=== PATIENT | male | born 1960 | race Caucasian/White ===

== ENCOUNTER 2021-02-23 09:45 | Outpatient (CLI) | payer BC, SELFPAY ==
--- NOTE | ~2021-02-23 | XR_ITS ---
EXAMINATION: XR chest 2V EXAM DATE: 02/23/2021 11:04 INDICATION: Malignant neoplasm of prostate, preoperative. TECHNIQUE: Frontal and lateral projections of the chest obtained and reviewed. There is no prior karen dy for comparison. FINDINGS: The lungs are clear. There are no pleural effusions. The cardiomediastinal silhouette is within normal limits. There is no pneumothorax suspected. There are no osteoblastic or osteolytic l esions identified. IMPRESSION: Unremarkable chest x-ray exam. Reviewed, dictated and finalized at location B.
--- NOTE | 2021-02-23 10:39 | ECG_ITS ---
Measurements Intervals [place] Rate: 60 P: -6 [place]: 183 QRS: -14 QRSD: 102 T: -1 QT: 390 QTc: 391 Interpretive Statements SINUS RHYTHM INFERIOR INFARCT, AGE INDETERMINATE BASELINE ARTIFACT- I, II, AVR ABNORMAL ECG Electronically Signed On 02-23-2021 12:36:25 CDT by Kareem Guzman D.O.
[2021-02-23 11:09] LABS: Basophils Percent Auto 0.3 % (0.2-1.2); Eosinophils Absolute Auto 0.2 K/mm3 (0-0.3); Eosinophils Percent Auto 3.5 % (0-4.4); Hematocrit 46.7 % (42.0-52.0); Hemoglobin 16.2 g/dL (14.0-18.0); Immature Granulocyte Absolute 0.02 K/mm3 (0.00-0.031); Immature Granulocyte Percent A 0.3 % (0-0.5); Lymphocytes Absolute Auto 1.91 K/mm3 (0.9-3.2); Lymphocytes Percent Auto 30.3 % (18.3-44.2); Mean Corpuscular HGB Conc 34.7 g/dl (32-36); Mean Corpuscular Hemoglobin 30.5 pg (26-34); Mean Corpuscular Volume 87.8 fl (80-100); Mean Platelet Volume 9.6 fl (7.4-10.4); Monocytes Absolute Auto 0.6 K/mm3 (0.1-0.6); Monocytes Percent Auto 9.7 % (2.6-8.5); Neutrophils Absolute Auto 3.5 K/mm3 (1.3-6.7); Neutrophils Percent Auto 55.9 % (45.5-73.1); Platelet Count Result 225 k/mm3 (150-375); Red Blood Count 5.32 M/mm3 (4.6-6.20); Red Cell Distribution Width 12.6 % (11.5-14.5); White Blood Count 6.3 K/mm3 (4.5-10.0)
[2021-02-23 11:21] LABS: Alanine Aminotransferase 24 U/L (4-50); Albumin Level 4.8 g/dL (3.5-5.1); Alkaline Phosphatase 61 U/L (38-126); Anion Gap 9 mmol/L (8-16); Aspartate Amino Transferase 23 U/L (17-59); Bilirubin,Total 0.7 mg/dL (0.2-1.3); Blood Urea Nitrogen 17 mg/dL (9-20); Calcium 9.2 mg/dL (8.4-10.2); Carbon Dioxide 27 mmol/L (22-30); Chloride 104 mmol/L (98-107); Estimated Glomerular Filt Rate > 60; Glucose 102 mg/dL (65-110); Potassium 4.3 mmol/L (3.4-5.0); Sodium 140 mmol/L (137-145)
[2021-02-23 11:34] LABS: Add Urine Microscopic? YES; Appearance Urine Clear (Clear); Bilirubin Urine Negative (Negative); Blood Urine Negative (Negative); Color Urine Yellow (Yellow); Glucose Urine UA Negative (Negative); Ketones Urine Negative (Negative); Leukocyte Esterase Ur Negative LEU/UL (Negative); Mucus Urine Rare /lpf; Nitrate Urine Negative (Negative); Protein Urine Negative (Negative); RBC Urine 0-2 /hpf (0-2); Specific Grav Ur 1.019 (1.001-1.035); Squamous Epithelial Cell Urine Rare /hpf (Few); Urobilinogen Urine Negative mg/dL (<2.0); WBC Urine 0-3 /hpf
[2021-02-23 12:44] LABS: INR 0.9; Prothrombin Time 11.7 Seconds (11.1-14.7)
[2021-02-23 12:45] LABS: Partial Thromboplastin Time 28.7 SECONDS (22.3-36.8)
== END 2021-02-23 09:46 | disposition home or self-care (01) ==
LOC: ANHSURGERY 09:53
PROVIDERS: PCP Family Medicine; Visit Provider Urology
DX: C61 Malignant neoplasm of prostate (principal); Z01.818 Encounter for other preprocedural examination; R94.31 Abnormal electrocardiogram [ECG] [EKG]
CPT/HCPCS: 36415; 71046; 80053; 81001; 85025; 85610; 85730; 86850; 86900; 86901; 93005

== ENCOUNTER 2021-03-03 01:45 | Day surgery (SDC) | payer BC, SELFPAY ==
--- NOTE | 2021-02-18 07:41 | P.HP_ITS ---
H&P: HPI History of Present Illness Date/Time: 02/18/21 07:41 Patient is a pleasant 60-year-old who was was deferred in the fall of 2019 with a PSA of 6.17. Prostate MRI revealed 1 suspicious lesion the left anterior transition zone measuring just 1.3 cm. Subsequent MRI fusion biopsy revealed 5 of 13 cores with [place] 6 and 3+4=7. Patient is status [facility] and has completed a course of adjuvant chemotherapy. After discussion of therapeutic options with myself in his medical oncologists he has elected for a robotic prostatectomy with bilateral pelvic lymphadenectomy. He is aware the risk of this procedure including, but not limited to, inability to complete because of his prior pelvic surgery, persistent cancer, rectal injury, postoperative urinary incontinence and erectile dysfunction. Chief Complaint: Prostate cancer Review of Systems Cardiovascular: Cardiovascular: Denies chest pain, Denies lightheadedness, Denies palpitations and Denies dyspnea Respiratory: Respiratory: Denies dyspnea Gastrointestinal: Gastrointestinal: Denies diarrhea, Denies nausea and Denies vomiting Genitourinary: Genitourinary: Denies hematuria and Denies dysuria Endocrine: Endocrine: Denies palpitations Exam Const: General: no acute distress Resp: Effort & Inspection: normal respiratory effort GI: Inspection: non-distended GI Palp: No abdominal tenderness and No Guarding due to palpation present (GI) Auscultation: normal bowel sounds Assessment and Plan Assessment and plan (1) Prostate cancer: Code(s): C61 - Malignant neoplasm of prostate Status: Acute Assessment and Plan: Robotic-assisted radical prostatectomy with bilateral pelvic lymphadenectomy
[2021-02-23 10:00] VITALS: BMI 29.8
[2021-03-03] VITALS (18 sets, daily range): BP systolic 93–138; BP diastolic 58–86; PULSE 66–102; RESP 15–18; TEMP 36.2–36.9; O2SAT 95–100
[2021-03-03] MEDS: LACTATED RINGERS 1,000 ML 30 ML IV CONT ×2 (06:49→11:18)
--- NOTE | 2021-03-03 06:49 | P.PNAN_ITS ---
Anes - Initial Pre Proc Eval Procedure: Operation Date: 03/03/21 07:30 Proposed Procedures p Robotic Assisted Laparoscopic Prostatectomy with Bilateral Pelvic Lymph Node Dissection - Mohsen Lozoya MD Date/Time: 03/03/21 06:49 Surgeon: Mohsen Lozoya MD Pre Op Diagnosis: prostate CA Patient Data Age: 60 Gender: M Height: 1.87 m Weight: 99.15 kg Last Vital Signs Temp 36.6 C 03/03/21 06:25 Pulse 66 03/03/21 06:25 Resp 16 03/03/21 06:25 BP 129/79 03/03/21 06:25 Pulse Ox 97 03/03/21 06:25 Allergies Allergy/AdvReac Type Severity Reaction Status Date / Time No Known Allergies Allergy Verified 03/03/21 06:31 Home Medications Medication Instructions Recorded Confirmed Type fnmghhf-cvcihlluyftho-yixruosi 2 tablet PO Q4-6H PRN 02/23/21 03/03/21 History [Excedrin Extra Strength] esomeprazole magnesium [Nexium] 20 mg PO PRN PRN 02/23/21 03/03/21 History Patient hx anesthesia problems: none Family hx anesthesia problems: none Results Review: All pre-operative results and documents have been reviewed as part of the pre-operative evaluation. [facility] Past Medical History Medical History (Updated 03/03/21 @ 06:52 by Lio Jiménez MD) Colon cancer Surgical History Surgical History (Updated 03/03/21 @ 06:52 by Lio Jiménez MD) History of partial colectomy Social History Social History Smoking status: Never smoker Living arrangements: with family Spiritual care concerns: No Anes - Eval Final PreProcedure Day of Procedure 03/03/21 06:49 Patient weight: overweight Heart: regular rate and rhythm Lungs: clear to auscultation Airway: Mallampati scale class II Neurological: alert and oriented Last oral intake: >/= 8 hours ASA classification: III Emergent: no Anesthetic plan: proceed Anesthesia type and monitoring: general and standard monitoring Results Review: All pre-operative results and documents have been reviewed as part of the pre-operative evaluation. Informed Consent: The patient's anesthetic plan and its attendant risks and benefits were discussed with the patient/family/POA. Questions were solicited and answers provided to the satisfaction of the patient/family/POA.
--- NOTE | 2021-03-03 06:56 | WPDHPUPDATE1 ---
History and Physical Update Update Date/Time: 03/03/21 06:56 History and Physical has been reviewed, including an updated exam of the patient. There are NO changes in the patient's condition. Risks, benefits, and alternatives have been discussed and questions answered. Patient agrees to proceed with procedure. Prostate volume: 56.7gm.
--- NOTE | 2021-03-03 11:13 | W.PM.PROC2 ---
Procedure Note - Detailed Date of Procedure 03/03/21 Pre-op Diagnosis Prostate CA Post-op Diagnosis same Procedure Performed Robotic assisted laparoscopic prostatectomy bilateral pelvic lymphadenectomy Surgeon Mohsen Lozoya MD [employer] RENETTA Troncoso Anesthesia general Description of Procedure The patient was brought to the operative suite, where he was prepped and draped in routine sterile fashion while in a dorsal lithotomy, deep Trendelenburg position. A supraumbilical 10 mm trocar was placed after insufflation of the abdomen with a Veress needle. Three robotic ports were then placed under direct vision. Two of these were placed in the right lower quadrant - 10 cm and 20 cm lateral to, and in line with, the umbilicus. A third robotic trocar was placed 10 cm to the left of the umbilicus, and 20 cm to the left of the umbilicus, a 12 mm standard laparoscopic trocar was placed to be used as an ice cream freezer assistant port. Lastly, a 5 mm trocar was placed in the left upper quadrant midway between the umbilicus and the left robotic trocar. Attention was then turned to the prostatectomy. I opted for a posterior approach in this patient. An incision was made in the parietal peritoneum along the posterior bladder/posterior prostate about 2 cm above the reflection of the peritoneum over the anterior rectum. The seminal vesicles and vas deferens were immediately identified. Dissection is undertaken in a fashion so as to avoid electrocautery as much as possible, particularly near the tips of the seminal vesicles. Dissection was also carried out in the midline so as to avoid any encounters with the ureters. The vas deferens and the seminal vesicles were dissected in their entirety to the base of the prostate. The plane anterior to Denoviller's fascia, anterior to the rectum and posterior to the prostate was then developed. I then dropped the bladder by incising the anterior parietal peritoneum just lateral to the median umbilical ligaments bilaterally. The bladder was dropped from the anterior abdominal and pelvic wall. The endopelvic fascia was identified and incised bilaterally, allowing for dissection of the posterior-lateral aspect of the prostate. The puboprostatic ligaments were transected near their origin from the posterior pubic ramus. This posterior lateral dissection of the prostate is also undertaken in a fashion so as to avoid electrocautery as much as possible. The dorsal vein of the penis is then secured with an 0 -Vicryl ligature. Attention is then turned to the bladder neck. The anterior bladder neck is incised at the vesico-prostatic junction. The previously placed urethral catheter was drawn through the urethrotomy. A very small bladder neck was maintained throughout the remainder of this dissection. The posterior bladder neck was incised in a fashion so as to avoid any injury to the ureteral orifices. Again, the small aperture of the bladder neck was maintained. The previously dissected vas deferens and the seminal vesicles were brought through the posterior bladder neck incision. The lateral prostatic pedicles were then carefully dissected from the lateral aspect of the prostate bilaterally. The prostatic pedicles were secured with Weck clips and transected. The neurovascular bundles were carefully dissected from the posterior-lateral aspect of the prostate. The dorsal vein of the penis was incised with electrocautery. Using cold scissors, the urethra was incised. After withdrawing the previously placed urethral catheter, the posterior urethra was sharply incised, as was the rectalurethralis muscle. Attention was then turned to an extended bilateral pelvic lymphadenectomy. The limits of this dissection were similar bilaterally. Specifically, the limits were the bifurcation of the common iliac vein proximally, the inguinal ligament distally, the obturator nerve posteriorly and the anterior aspect to the external iliac artery laterally.
[2021-03-03] MEDS: fentaNYL CITRATE INJ (*CRX) 100 MCG/2 ML VIAL 25 MCG IV PUSH ×4 (12:54→13:40)
[2021-03-03] MEDS: LACTATED RINGERS 1,000 ML 125 ML IV CONT ×2 (14:14→22:39)
[2021-03-04 06:16] LABS: Hematocrit 34.8 % (42.0-52.0); Hemoglobin 11.6 g/dL (14.0-18.0)
[2021-03-04 06:25] LABS: Anion Gap 7 mmol/L (8-16); Blood Urea Nitrogen 20 mg/dL (9-20); Calcium 8.3 mg/dL (8.4-10.2); Carbon Dioxide 24 mmol/L (22-30); Chloride 103 mmol/L (98-107); Estimated CRCL calculation 100 ml/min; Estimated Glomerular Filt Rate > 60; Glucose 149 mg/dL (65-110); Sodium 134 mmol/L (137-145)
[2021-03-04 06:45] VITALS: BP 130/74; PULSE 91; RESP 18; TEMP 36.9; O2SAT 96
[2021-03-04] MEDS: LACTATED RINGERS 1,000 ML 125 ML IV CONT (06:54)
[2021-03-04] MEDS: levoFLOXacin 500 MG TABLET PO (08:29)
--- NOTE | 2021-03-04 08:32 | WPDUROPN2 ---
Progress Note: A&P Assessment and Plan (1) Prostate cancer: Code(s): C61 - Malignant neoplasm of prostate Status: Acute Assessment and Plan: Doing well POD #1 RALP Incraeas diet/ambulation this morning. Likely home this afternoon. Subjective Subjective Date/Time Seen: 03/04/21 08:32 Comfortable, tolerating diet Review of Systems Cardiovascular: Cardiovascular: Denies chest pain, Denies lightheadedness, Denies palpitations and Denies dyspnea Respiratory: Respiratory: Denies dyspnea Gastrointestinal: Gastrointestinal: Denies diarrhea, Denies nausea and Denies vomiting Genitourinary: Genitourinary: Denies hematuria and Denies dysuria Endocrine: Endocrine: Denies palpitations Exam Const: General: no acute distress Resp: Effort & Inspection: normal respiratory effort GI: Inspection: non-distended GI Palp: No abdominal tenderness and No Guarding due to palpation present (GI) Auscultation: normal bowel sounds Objective Data Vital Signs Vital Signs: Vital Signs - 24 hr 03/03/21 11:18 03/03/21 11:30 03/03/21 11:45 Temperature 97.2 F L Pulse Rate 80 80 75 Respiratory Rate 17 15 18 Blood Pressure 134/75 123/86 106/65 Pulse Oximetry 100 100 100 03/03/21 12:00 03/03/21 12:15 03/03/21 12:30 Temperature Pulse Rate 75 82 73 Respiratory Rate 18 18 17 Blood Pressure 93/59 L 97/62 L 102/58 L Pulse Oximetry 97 97 97 03/03/21 12:45 03/03/21 13:00 03/03/21 13:15 Temperature Pulse Rate 80 80 85 Respiratory Rate 17 17 18 Blood Pressure 119/65 116/75 107/60 Pulse Oximetry 97 97 97 03/03/21 13:30 03/03/21 14:05 03/03/21 14:20 Temperature 97.4 F L 97.9 F Pulse Rate 91 87 84 Respiratory Rate 18 16 16 Blood Pressure 109/72 120/73 117/68 Pulse Oximetry 95 95 95 03/03/21 14:40 03/03/21 16:00 03/03/21 19:29 Temperature 97.9 F 98.2 F 98.5 F Pulse Rate 89 93 102 H Respiratory Rate 16 18 18 Blood Pressure 112/71 130/71 138/74 Pulse Oximetry 97 97 96 03/03/21 20:00 03/03/21 23:29 03/04/21 06:45 Temperature 97.6 F 98.4 F Pulse Rate 93 95 91 Respiratory Rate 18 18 18 Blood Pressure 119/71 130/74 Pulse Oximetry 97 96 96 Intake/Output Intake/Output: Intake & Output 03/01/21 03/02/21 03/03/21 03/04/21 23:59 23:59 23:59 23:59 Intake Total 3340 1500 Output Total 510 900 Balance 2830 600 Meds/Results Medications: Active Medications Generic Name Dose Route Start Last Admin Trade Name Freq PRN Reason Stop Dose Admin Hyoscyamine 0.125 mg 03/03/21 13:44 Hyoscyamine Sulfate 0.125 Mg Tablet SUBLINGUAL Q4H PRN Bladder Spasm Lactated Ringer's 1,000 mls @ 125 mls/hr 03/03/21 13:44 03/04/21 06:54 Lr - Lactated Ringers Iv IV CONT 125 mls/hr .Q8H KRYS Administration Acetaminophen 1,000 mg in 100 mls @ 400 mls/hr 03/03/21 14:00 03/04/21 08:28 Ofirmev 1,000 Mg Ivpb IVPB 03/04/21 13:59 400 mls/hr Q6H KRYS Administration Ketorolac Tromethamine 30 mg 03/03/21 13:44 Ketorolac 30 Mg/Ml Vial (*Bkc) IV PUSH 03/04/21 13:43 Q6H PRN Pain Rated 4-6 Levofloxacin 500 mg 03/04/21 09:00 03/04/21 08:29 Levofloxacin 500 Mg Tablet PO 500 mg DAILY KRYS Administration Naloxone HCl 0.1 mg 03/03/21 13:44 Naloxone Hcl 0.4 Mg/Ml Vial IV PUSH Q2M PRN Opiate Reversal Labs Labs: Laboratory Results - last 24 hr 03/04/21 03/04/21 05:39 05:39 Hgb 11.6 L D Hct 34.8 L Sodium 134 L Potassium 4.0 Chloride 103 Carbon Dioxide 24 Anion Gap 7 L BUN 20 Creatinine 0.80 Estim Creat Clear Calc 100 Estimated GFR > 60 Glucose 149 H Calcium 8.3 L
[2021-03-04 10:20] VITALS: BP 124/78; PULSE 88; RESP 16; TEMP 36.9; O2SAT 97
--- NOTE | 2021-03-04 13:10 | PM.DS ---
DS: Admitting Diagnosis Discharge Date 03/04/2021 Admitting Diagnosis Prostate cancer DS: Discharge Diagnosis Discharge Diagnosis (1) Prostate cancer: Code(s): C61 - Malignant neoplasm of prostate Status: Acute DS: Summary Hospital Course Hospital Course: This patient was admitted on the morning of his planned robotic prostatectomy. This procedure was uneventful, as was his postoperative course. By the evening of the procedure he was sitting at the bedside in tolerating a liquid diet. The following morning he was ambulating freely and tolerating regular food. His catheter drainage remained essentially clear throughout. His postoperative hemoglobin and serum creatinine were unremarkable. At the time of discharge he has been instructed in appropriate care for his Monge catheter with both a leg bag and bedside bag. He will be discharged with plans to follow-up in 1 week with a cystogram. Time Spent with Patient Time attestation: Total time spent providing and/or coordinating discharge services: 20min. Exam Const: General: no acute distress Resp: Effort & Inspection: normal respiratory effort GI: Inspection: non-distended GI Palp: No abdominal tenderness and No Guarding due to palpation present (GI) Auscultation: normal bowel sounds DS: Data Data Completed and Pending Pending studies at discharge: Pending at discharge 03/03/21 10:19 Surgical [PTH] Routine Surgical [PTH] Routine Labs on day of discharge: Labs from last 24 hours 03/04/21 03/04/21 05:39 05:39 Hgb 11.6 L D Hct 34.8 L Sodium 134 L Potassium 4.0 Chloride 103 Carbon Dioxide 24 Anion Gap 7 L BUN 20 Creatinine 0.80 Estim Creat Clear Calc 100 Estimated GFR > 60 Glucose 149 H Calcium 8.3 L Discharge Plan Discharge Patient Disposition: Home, Self-Care Discharge Instructions: 1) Monge catheter -> leg bag / bedside bag at night. 2) No lifting/straining >15lbs. x3 weeks. 3) No driving x1-week. 4) Resume normal, pre-operative diet. 5) My office will contact regarding follow-up in 1-week with cystogram. Stand Alone Forms: General Discharge Instructions Discharge Orders: Discharge Order (Routine); Ordered 03/04/21 Ordered By: Mohsen Lozoya Discharge Medications: New hydrocodone-acetaminophen 5-325 mg tablet 1 - 2 tablet PO Q6H PRN (Reason: pain) Qty: 20 RF: 0 docusate sodium [Colace] 100 mg capsule 100 mg PO DAILY Qty: 30 RF: 0 ciprofloxacin HCl 500 mg tablet 500 mg PO Q12H Qty: 10 RF: 0 hyoscyamine sulfate 0.125 mg tablet 0.125 mg PO Q6H PRN (Reason: bladder spasms) Qty: 20 RF: 2 Continued esomeprazole magnesium [Nexium] 20 mg Capsule,Delayed Release(Dr/Ec) 20 mg PO PRN PRN (Reason: Heartburn) RF: 0 Held Excedrin Extra Strength 250-250-65 mg Tablet 2 tablet PO Q4-6H PRN (Reason: Pain) RF: 0 Hold Instructions: Resume on 03/08/21.
== END 2021-03-04 15:00 | disposition home or self-care (01) ==
LOC: ANHSURGERY 06:58 → ANH3MED 13:42
PROVIDERS: Visit Provider Urology
PROC: 0VT04ZZ Resection of Prostate, Percutaneous Endoscopic Approach (ICD-10-PCS; CPT 55867; principal; 2021-03-03 07:30)
DX: C61 Malignant neoplasm of prostate (principal); Z85.038 Personal history of other malignant neoplasm of large intestine; Z90.49 Acquired absence of other specified parts of digestive tract; Z79.82 Long term (current) use of aspirin
CPT/HCPCS: 55866; 38571; S2900; 36415; 71046; 80048; 80053; 81001; 85014; 85018; 85025; 85610; 85730; 86850; 86900; 86901; 88305; 88309; 93005; A9270; J0131; J1100; J1170; J2250; J2405; J2704; J2710; J3010; J7030; J7120; Q9968

== ENCOUNTER 2021-03-11 11:04 | Outpatient (CLI) | payer BC, SELFPAY ==
--- NOTE | ~2021-03-11 | XR_ITS ---
XR cystogram DATE: 03/11/2021 11:55 INDICATION: Prostate cancer TECHNIQUE: 12 images 1.3 minutes fluoroscopy time DAP: 49.495 COMPARISON: None FINDINGS: The bladder, 100 cc of Omnipaque 350 intravenous contrast material, administered via the ex isting Monge catheter within the bladder lumen. There was leakage of the contrast material around the catheter through the urethra. No extravasation of contrast material from the urinary bladder lumen is noted. No vesicoureteral refl ux. IMPRESSION: No extravasation of contrast material from the bladder lumen or vesicoureteral reflux Reviewed, dictated and finalized at Location [facility]. Reviewed, dictated and finalized at location A. IMPRESSION: No extravasation of contrast material from the bladder lumen or ves icoureteral reflux
== END 2021-03-11 11:05 | disposition home or self-care (01) ==
LOC: ANHIMG 11:13
PROVIDERS: Visit Provider Urology
DX: C61 Malignant neoplasm of prostate (principal)
CPT/HCPCS: 51600; 74430; Q9967

== ENCOUNTER 2021-03-28 22:07 | Observation (INO) | payer BC, SELFPAY ==
--- NOTE | ~2021-03-28 | CT_ITS ---
EXAMINATION: CT abdomen pelvis w con INDICATION: Abdominal pain and fever, history of robotic-assisted laparoscopic prostatectomy and bila teral pelvic lymphadenectomy on 03/03/2021 TECHNIQUE: Computed tomographic images of the abdomen and pelvis were obtained after the administrati on of 100 cc of Omnipaque 350 intravenous contrast. The dose-length product (DLP) was 913.29 mGy-cm. Automated exposure control and iterative reconstruction technique were employed. COMPARISON: None available FINDINGS: Minimal dependent atelectasis is present in the lung bases. The heart size is normal. Calci fied coronary artery atherosclerosis is noted. The liver, spleen, pancreas, gallbladder, and adrenal glands are normal. A duplicated right collecting system is noted. The left kidney is unremarkable. Th ere are bilateral pelvic fluid collections along the expected course of recent pelvic lymph node diss ection. Neither contain gas. There is an approximately 3.7 x 2.9 x 5.7 cm fluid collection in the pro statectomy bed. There is circumferential bladder wall thickening with surrounding fat stranding. Ther e is no free intraperitoneal gas or evidence of bowel obstruction. There are no pathologically enlarg ed abdominal lymph nodes. A moderate volume of colonic stool is present. IMPRESSION: 1. Bladder wall thickening, consistent with cystitis given the patient's urinalysis results. 2. Bilateral pelvic fluid collections along the expected course of recent lymph node dissection and f luid in the prostatectomy bed, likely postoperative, abscess considered less likely. Reviewed, dictated and finalized at location A. IMPRESSION: 1. Bladder wall thickening, consistent with cystitis given the patient's urinal ysis results. 2. Bilateral pelvic fluid collections along the expected course of recent lymph node dissection and fluid in the prostatectomy bed, likely postoperative, absc ess considered less likely.
--- NOTE | ~2021-03-28 | XR_ITS ---
XR chest 2V 03/28/2021 22:49 Indication: Fever and sweats. History of colon cancer. Procedure: 2 view chest Comparison: 02/23/2021 Findings: There is left basilar airspace disease. Heart size normal. Right lung clear. No pleural eff usion or pneumothorax. No acute osseous abnormality. Impression: 1: Left basilar infiltrates may represent atelectasis and/or pneumonia. Reviewed, dictated and finalized at location A. Impression: 1: Left basilar infiltrates may represent atelectasis and/or pneumonia.
--- NOTE | ~2021-03-28 | US_ITS ---
EXAMINATION: US scrotum doppler EXAM DATE: 03/30/2021 13:58 INDICATION: Right epididymitis. TECHNIQUE: Multiple grayscale and Doppler images of the testicles and scrotum were obtained bilateral ly. Correlation is made to CT abdomen pelvis from 03/28/2021. FINDINGS: Right testicle measures 4.2 x 1.9 x 3.4 cm and is morphologically normal. Low resistance Doppler patricia w confirmed. Epididymis is enlarged and hypervascular consistent with epididymitis. Small to moderate -sized hydrocele. Left testicle measures 4.9 x 2.3 x 3.3 cm and is morphologically normal. Low resistance Doppler flow confirmed. There is small epididymal head cyst. There is no hydrocele or varicocele. IMPRESSION: Enlarged hypervascular right epididymis consistent with epididymitis. Reviewed, dictated and finalized at location B. IMPRESSION: Enlarged hypervascular right epididymis consistent with epididymiti s.
[2021-03-28 22:10] VITALS: BP 131/88; PULSE 101; RESP 20; TEMP 39; O2SAT 94
[2021-03-28] MEDS: ACETAMINOPHEN 500 MG TABLET 1000 MG (22:45)
[2021-03-28 23:00] VITALS: BP 114/82
[2021-03-28] MEDS: SODIUM CHLORIDE 0.9% IV 1,000 ML 999 ML (23:12)
[2021-03-28 23:19] VITALS: BP 114/82; PULSE 93; RESP 18; TEMP 37.9; O2SAT 97
[2021-03-28 23:28] LABS: Lactic Acid Reflex 0.8 mmol/L (0.7-2.1)
[2021-03-28 23:30] LABS: Basophils Percent Auto 0.4 % (0.2-1.2); Eosinophils Percent Auto 0.2 % (0-4.4); Hematocrit 36.8 % (42.0-52.0); Immature Granulocyte Absolute 0.03 K/mm3 (0.00-0.031); Immature Granulocyte Percent A 0.5 % (0-0.5); Lymphocytes Absolute Auto 0.62 K/mm3 (0.9-3.2); Lymphocytes Percent Auto 10.9 % (18.3-44.2); Mean Corpuscular HGB Conc 32.6 g/dl (32-36); Mean Corpuscular Hemoglobin 29.3 pg (26-34); Mean Platelet Volume 9.9 fl (7.4-10.4); Monocytes Absolute Auto 0.7 K/mm3 (0.1-0.6); Monocytes Percent Auto 12.3 % (2.6-8.5); Neutrophils Absolute Auto 4.3 K/mm3 (1.3-6.7); Neutrophils Percent Auto 75.7 % (45.5-73.1); Platelet Count Result 234 k/mm3 (150-375); Red Blood Count 4.09 M/mm3 (4.6-6.20); Red Cell Distribution Width 14.1 % (11.5-14.5); White Blood Count 5.7 K/mm3 (4.5-10.0)
[2021-03-28 23:31] LABS: Alanine Aminotransferase 28 U/L (4-50); Albumin Level 3.9 g/dL (3.5-5.1); Alkaline Phosphatase 98 U/L (38-126); Anion Gap 10 mmol/L (8-16); Aspartate Amino Transferase 36 U/L (17-59); Bilirubin,Total 0.7 mg/dL (0.2-1.3); Blood Urea Nitrogen 16 mg/dL (9-20); CRP 8.9 mg/dL (<1.0); Carbon Dioxide 25 mmol/L (22-30); Chloride 98 mmol/L (98-107); Estimated CRCL calculation 111 ml/min; Estimated Glomerular Filt Rate > 60; Glucose 133 mg/dL (65-110); Potassium 4.2 mmol/L (3.4-5.0); Sodium 133 mmol/L (137-145)
[2021-03-28 23:33] LABS: INR 1.1; Prothrombin Time 14.1 Seconds (11.1-14.7)
[2021-03-28 23:34] LABS: Partial Thromboplastin Time 34.4 SECONDS (22.3-36.8)
[2021-03-28 23:35] LABS: Add Urine Microscopic? YES; Appearance Urine Cloudy (Clear); Bacteria Urine 2+ /hpf; Bilirubin Urine Negative (Negative); Blood Urine 3+ (Negative); Color Urine Yellow (Yellow); Glucose Urine UA Negative (Negative); Ketones Urine 1+ mg/dL (Negative); Leukocyte Esterase Ur 3+ LEU/UL (Negative); Mucus Urine Rare /lpf; Nitrate Urine Negative (Negative); Protein Urine 2+ mg/dL (Negative); RBC Urine >75 /hpf (0-2); Specific Grav Ur 1.023 (1.001-1.035); WBC Urine >75 /hpf
--- NOTE | 2021-03-29 | ECHO_ITS ---
Patient Info Name: Rohit Nieto Age: 61 years : 1960 Gender: Male Ht: 73 in Wt: 213 lbs BSA: 2.25 m2 HR: 88 bpm BP: 111 / 63 mmHg Heart Rhythm: Sinus Rhythm Exam Date: 03/29/2021 1:30 PM Exam Location: [facility] Patient Status: Inpatient Admit Date: 03/29/2021 Staff Ordering Physician: Rashmi Xiao PA-C [employer]: Amauri Yancey RDCS, RT Attending Provider: Rashmi Xiao PA-C Exam Type: CA echo doppler color flow Study Info Complete two-dimensional, color flow and Doppler transthoracic echocardiogram is performed. Strain analysis performed. Summary 1. Complete two-dimensional, color flow and Doppler transthoracic echocardiogram is performed. 2. Left ventricular chamber dimension is normal. 3. Left ventricular systolic function is normal, estimated at 55-60%. 4. There is mildly increased left ventricular wall thickness. 5. The left ventricular diastolic function is grade I diastolic dysfunction. 6. Global longitudinal strain is abnormal at -15 %. 7. There is moderate aortic valve stenosis with a peak velocity of 297 cm/s, mean gradient of 19 mmHg, and aortic valve area of 1.3 cm2. 8. There is severe aortic valve calcification. 9. There is mild aortic valve regurgitation. 10. There is mild mitral valve regurgitation. Left Ventricle Left ventricular chamber dimension is normal. Left ventricular systolic function is normal, estimated at 55-60%. There is mildly increased left ventricular wall thickness. The left ventricular diastolic function is grade I diastolic dysfunction. Global longitudinal strain is abnormal at -15 %. Right Ventricle Right ventricular chamber dimension is normal. Right ventricular systolic function is normal. Left Atria Left atrial chamber dimension is normal. Right Atria Right atrial chamber dimension is normal. Atrial Septum Intact interatrial septum visualized by color flow imaging. Aortic Valve There is moderate aortic valve stenosis with a peak velocity of 297 cm/s, mean gradient of 19 mmHg, and aortic valve area of 1.3 cm2. There is mild aortic valve regurgitation. There is severe aortic valve calcification. Pulmonic Valve The pulmonic valve is normal. There is no pulmonic valve stenosis. Mitral Valve The mitral valve has normal leaflets. There is no mitral valve stenosis. There is mild mitral valve regurgitation. Tricuspid Valve The tricuspid valve leaflets are normal. There is no significant tricuspid valve stenosis. There is trace tricuspid valve regurgitation. Pericardium/Pleural The pericardium appears normal. There is no pericardial effusion. Inferior Vena Cava Dilated inferior vena cava with <50% collapse upon inspiration consistent with elevated right atrial pressure, 10 mmHg. Aorta The aortic root size at the sinus of Valsalva is normal. Left Ventricular Outflow Tract Name Value Normal LVOT 2D LVOT Diameter 2.1 cm LVOT Doppler LVOT Peak Gradient 5 mmHg LVOT Mean Gradient 3 mmHg LVOT VTI 19 cm LVOT VTI
[2021-03-29] MEDS: SODIUM CHLORIDE 0.9% IV 1,000 ML 999 ML IV CONT (00:09)
--- NOTE | 2021-03-29 00:38 | ED.GENADULT ---
HPI - General Adult General Chief complaint: Urogenital-Male Stated complaint: Fever Time Seen by Provider: 03/28/21 23:20 History of Present Illness HPI narrative: Patient 61-year-old gentleman who presents the emergency department with chief complaint of febrile illness. Patient reports that he had a TURP and then had a Monge catheter reports surgery was done on 03 March and had his catheter removed on the patient is noticed for the last several days he has not felt so good and reported that he was seen in the urology clinic today had a turbid urine that was concerned for infection. Patient reports he was started on Bactrim took the first dose and then started spiking a high temperature at home. Patient reports no nausea reports a little bit of abdominal discomfort with this and reports that has had some discomfort in his scrotum. Patient reports that they called the on-call urologist to had him come to the emergency department for further evaluation. Related Data Home Medications Medication Instructions Recorded Confirmed Excedrin Extra Strength 2 tablet PO Q4-6H PRN 02/23/21 03/03/21 esomeprazole magnesium [Nexium] 20 mg PO PRN PRN 02/23/21 03/03/21 Allergies Allergy/AdvReac Type Severity Reaction Status Date / Time No Known Allergies Allergy Verified 03/03/21 06:31 Review of Systems Review of Systems: A 10 system review of systems was completed on the patient and is negative except for what is stated in the HPI. Nursing and ancillary documentation was reviewed. [facility] Past Medical History Medical History Colon cancer Surgical History Surgical History History of partial colectomy Social History Social History Smoking status: Never smoker Spiritual care concerns: No Exam Narrative: GENERAL: Well-appearing, well-nourished, and in no acute distress. HEAD: Normocephalic, atraumatic. EYES: PERRLA and EOMI. ENT: Nares clear, no rhinorrhea or epistaxis. Mucous membranes moist. NECK: Supple. CHEST: Clear to auscultation. No respiratory distress. HEART: Regular rate and rhythm. No murmur heard. Normal peripheral pulses. ABDOMEN: Soft, nontender, nondistended, normal active bowel sounds. : There is no fluctuance or crepitance there is tenderness to palpation in the epididymal region. There is no necrotic tissue. No signs of Ben's EXTREMITIES: Normal range of motion. No edema. SKIN: Warm, dry, no rash. NEURO: No focal deficits. Alert and oriented x3. PSYCH: Normal mood and affect. Course Vital Signs Vital signs: Vital Signs Temperature 39.0 C H 03/28/21 22:10 Pulse Rate 101 H 03/28/21 22:10 Respiratory Rate 20 03/28/21 22:10 Blood Pressure 131/88 03/28/21 22:10 Pulse Oximetry 94 03/28/21 22:10 Temperature 37.9 C H 03/28/21 23:19 Pulse Rate 84 03/29/21 01:05 Respiratory Rate 16 03/29/21 01:05 Blood Pressure 115/73 03/29/21 01:05 Pulse Oximetry 97 03/29/21 01:05 Medical Decision Making Vital Signs Vital Signs: Vital Signs Temperature 39.0 C H 03/28/21 22:10 Pulse Rate 101 H 03/28/21 22:10 Respiratory Rate 20 03/28/21 22:10 Blood Pressure 131/88 03/28/21 22:10 Pulse Oximetry 94 03/28/21 22:10 Temperature 37.9 C H 03/28/21 23:19 Pulse Rate 84 03/29/21 01:05 Respiratory Rate 16 03/29/21 01:05 Blood Pressure 115/73 03/29/21 01:05 Pulse Oximetry 97 03/29/21 01:05 Lab Data Result diagrams: 03/28/21 22:45 03/28/21 22:55 Labs: Lab Results 03/28/21 03/28/21 03/28/21 Range/Units 22:45 22:45 22:45 WBC 5.7 (4.5-10.0) K/mm3 RBC 4.09 L (4.6-6.20) M/mm3 Hgb 12.0 L (14.0-18.0) g/dL Hct 36.8 L (42.0-52.0) % MCV 90.0 (80-100) fl MCH 29.3 (26-34) pg MCHC 32.6 (32-
[2021-03-29 01:05] VITALS: BP 115/73; PULSE 84; RESP 16; O2SAT 97
--- NOTE | 2021-03-29 01:07 | PC.NURSE ---
offered pain meds states he can wait
[2021-03-29 02:45] VITALS: BP 111/63; PULSE 66; RESP 18; TEMP 35.8; O2SAT 96; BMI 28.1
[2021-03-29] MEDS: SODIUM CHLORIDE 0.9% IV 1,000 ML 125 ML IV CONT ×2 (02:56→15:38)
--- NOTE | 2021-03-29 03:49 | ADMGEN ---
This patient, Rohit Nieto, was admitted to [facility] Surg Room 330-01. Patient/family oriented to hospital policies and general routines including ID bracelet, bed and alarms, visiting hours, pain management, procedures, bathroom and other care routines, personal items, smoking policy, room service/diet, and visiting hours. Information on how to activate the Rapid Response Team has been discussed. Patient/Family are encouraged to report perceived risks to care and to ask questions if they do not understand what they are told or what they should do.
[2021-03-29 03:53] VITALS: BP 111/63; PULSE 66; RESP 18; TEMP 35.8; O2SAT 96
--- NOTE | 2021-03-29 05:49 | PM.IMHP ---
H&P: HPI History of Present Illness Date/Time: 03/29/21 05:49 Chief Complaint: Fever Narrative: Unfortunate 61-year-old male past medical history of colon cancer 2015 and prostate cancer diagnosed January 2020 with subsequent recent robotic assisted laparoscopic prostatectomy and bilateral pelvic lymphadenectomy who presented to the ER with fever. The patient initially had elevated PSA in the fall of 2019. He had a prostate MRI which revealed 1 suspicious lesion of the left anterior transition zone and subsequent MRI fusion biopsy revealed 5/13 core biopsy with high Crozet scores. The patient had robotic assisted laparoscopic prostatectomy with bilateral pelvic lymphadenectomy 03/03/2021 and had a Monge catheter in place until 03/11/2021. He had several days of not feeling well. He reports that he was having several nights of sweating to the point that he had to get up in changes clothes. He has also been having some chills. He had noticed some swelling of his right testicle. He went for a follow-up with urologist on the . In the office, his urine appeared turbid and he was given a prescription for Bactrim. After he took the 1st dose of Bactrim he spiked a fever up to 103?. He also had some GI upset and thought he was having some GERD so he took a dose of Nexium. When he took the dose of Nexium he had 1 episode of vomiting. He had noticed some swelling of his right testicle. He called the on-call urologist who directed him to come to the ER for further evaluation. He did not take any Tylenol or ibuprofen for his fevers he was told not to until he was evaluated in the ER. He denied having any dysuria or changes in urinary frequency. He did notice that his urine was darker but denies any gross hematuria. He reports that his urine is logger in color after he has been receiving IV fluids. He received empiric antibiotic therapy with Rocephin. He reports that he had his CT scan final scan for his colon cancer last month. He was told that he was clear. Review of Systems Review of Systems: 12 systems were reviewed with pertinent positives and negatives per HPI. Except as documented in the HPI, all other systems were reviewed and are negative. [facility] Past Medical History Medical History (Updated 03/29/21 @ 07:15 by Essence Figueroa DO) Colon cancer (2016) Mid sigmoid colectomy [facility] and completed a adjunctive course of chemotherapy. Surgical History Surgical History (Updated 03/29/21 @ 06:02 by Essence Figueroa DO) History of partial colectomy Sigmoid colectomy S/P TURP (status post transurethral resection of prostate) (~03/03/21) Family History Family History Father CHF (congestive heart failure) Mother Patient's mother is in good health Daughter Spina bifida Scoliosis Son In good health Social History Social History (Updated 03/29/21 @ 07:19 by Essence Figueroa DO) Social History: He lives at home with his of 32 years. They have a daughter age 26 has spina bifida. He also have a son who is healthy. He works as a guest services agent. Is a lifelong nonsmoker, does not drink alcohol or use illicit substances. Code status: Full code Surrogate decision maker: Smoking status: Never smoker Alcohol intake: never Substance use: never Substance use type: does not use Living arrangements: with family Occupation/Education: occupation Gender identity (if verbalized by the patient): Male Sexual Orientation (if Verbalized by the Patient): Straight or Heterosexual Spiritual care concerns: No Agree to blood products: Yes Meds Home Medications and Allergies Home Medications Medication Instructions Recorded Confirmed Type Excedrin Extra Strength 2 tablet PO Q4-6H PRN 02/23/21 03/29/21 History esomeprazole magnesium [Nexium] 20 mg PO DAILY PRN 02/23/21 03/29/21 History docusate sodium [Colace] 100 mg PO DAILY
--- NOTE | 2021-03-29 11:42 | PC.NURSE ---
On 03/29/21, the student, [Ivette Gonzales], provided care and completed [facility] documentation on this patient. I have reviewed the student's documentation and agree with the findings.
--- NOTE | 2021-03-29 13:06 | PM.IMPN ---
Progress Note: A&P Assessment and Plan (1) Urinary tract infection: Qualifiers: Hematuria presence: without hematuria Urinary tract infection type: acute cystitis Qualified Code(s): N30.00 - Acute cystitis without hematuria Code(s): N39.0 - Urinary tract infection, site not specified Status: Acute Assessment and Plan: UA suspicious for UTI -await urine and blood cultures -continue ceftriaxone -last fever 03/28/21 (2) Prostate cancer: Code(s): C61 - Malignant neoplasm of prostate Status: Acute Assessment and Plan: Prostate cancer status post prostatectomy. Patient's CT demonstrated cystic (necrotic) bilateral external iliac chain and inguinal lymphadenopathy with a broad differential that were not present on a prior CT. Suspect these findings are due to the patient's recent prostate surgery and lymph node manipulation. -Urology it has been consulted further input and recommendations. (3) Murmur: Code(s): R01.1 - Cardiac murmur, unspecified Status: Acute Assessment and Plan: Pt states he has no hx of this -obtain echo -no signs of heart failure. No hx of heart disease Time Spent With Patient Time with patient: 25 - 35 minutes Subjective Date/time seen: 03/29/21 13:06 Interval history: Pt is a 61-year-old male here for UTI. Patient was seen today and states he is feeling a little better. He says his appetite is increasing. He noticed last night that he had a fever but has not had any fevers since. Pt denies nausea, vomiting, constipation, diarrhea, chest pain, sob, or abdominal pain. Review of Systems Review of Systems: All systems reviewed & are unremarkable except as noted in HPI and below Exam Narrative: General: Well developed well nourished patient in NAD HEENT: normocephalic Neck: supple Neuro: Alert and oriented x4 CV:RRR with systolic murmur heard best in the 2nd right ICS that radiates to the carotid Resp:CTA Abd: Soft, non distended. No pain to palpation. Positive bowel sounds Extremities: No swelling, erythema, or pain to palpation. Objective Data Vital Signs Vital Signs: Vital Signs - 24 hr 03/28/21 22:10 03/28/21 23:00 03/28/21 23:19 Temperature 102.2 F H 100.3 F H Pulse Rate 101 H 93 Respiratory Rate 20 18 Blood Pressure 131/88 114/82 114/82 Pulse Oximetry 94 97 03/29/21 01:05 03/29/21 02:45 03/29/21 03:53 Temperature 96.5 F L 96.5 F L Pulse Rate 84 66 66 Respiratory Rate 16 18 18 Blood Pressure 115/73 111/63 111/63 Pulse Oximetry 97 96 96 Intake/Output Intake/Output: Intake & Output 03/26/21 03/27/21 03/28/21 03/29/21 23:59 23:59 23:59 23:59 Intake Total 2346 Output Total 0 Balance 2346 Meds/Results Medications: Active Medications Generic Name Dose Route Start Last Admin Trade Name Freq PRN Reason Stop Dose Admin Acetaminophen 650 mg 03/29/21 01:52 Acetaminophen 325 Mg Tablet PO Q4H PRN Mild Pain (1-3) or Fever Acetaminophen/Aspirin/Caffeine 2 tablet 03/29/21 06:01 Acetaminophen/Aspirin/Caffeine 250-250-65 Mg Tablet PO Q4-6H PRN Headache Docusate Sodium 100 mg 03/29/21 06:01 Docusate Sodium 100 Mg Capsule PO DAILY PRN Constipation Ceftriaxone Sodium/Dextrose 1 gm in 50 mls @ 100 mls/hr 03/29/21 21:00 Rocephin 1 Gm/D5w 50 Ml IVPB Q24H KRYS Sodium Chloride 1,000 mls @ 125 mls/hr 03/29/21 01:55 03/29/21 02:56 Normal Saline Iv IV CONT 125 mls/hr .Q8H KRYS Administration Morphine Sulfate 4 mg 03/29/21 01:52 Morphine Sulfate (*Crx) 4 Mg/Ml Inj IV PUSH Q2H PRN Pain Rated 7-10 Ondansetron HCl 4 mg 03/29/21 01:52 Ondansetron Inj 4 Mg/2 Ml Vial IV PUSH Q4H PRN Nausea Pantoprazole Sodium 40 mg 03/29/21 06:01 Pantoprazole 40 Mg Tablet PO DAILY PRN Heartburn Radiology Results: ITS Impressions Chest X-Ray 03/28/21 22:52 Impression: 1
[2021-03-29 14:00] VITALS: BP 133/67; PULSE 85; RESP 18; TEMP 37.4; O2SAT 96
--- NOTE | 2021-03-29 16:18 | WPDURCON ---
Assessment and Plan Assessment and plan (1) Urinary tract infection: Qualifiers: Hematuria presence: without hematuria Urinary tract infection type: acute cystitis Qualified Code(s): N30.00 - Acute cystitis without hematuria Code(s): N39.0 - Urinary tract infection, site not specified Status: Acute Assessment and Plan: Continue IV Ceftriaxone and tailor to culture results. No further evaluation at this time. (2) Prostate cancer: Code(s): C61 - Malignant neoplasm of prostate Status: Acute Assessment and Plan: Patient had a negative cystogram prior to [place] removal on 03/22/2021. Patient will f/u as planned with Dr. Lozoya. (3) Epididymitis, right: Code(s): N45.1 - Epididymitis Status: Acute Urology Consult Note HPI Date Seen: 03/29/21 Requesting Physician: Rashmi Xiao PA-C Primary Care Provider: PHYSICIAN NOT ON STAFF Consult Narrative Narrative: Rohit Nieto is a 61 year old male who presented to the office yesterday s/p prostatectomy with lymph node dissection on 03/03/2021 for hematuria, fever and incisional pain as well as right scrotal edema and pain. He was assessed in the office and diagnosed with right epididymitis, UTI and started on Bactrim. He then went home spiked a fever of 102 after one dose of Bactrim and went to the ER. He was admitted and placed on IV Ceftriaxone, a blood and urine culture were taken and a CT scan was done which showed bilateral pelvic fluid collection along lymph node dissection area and fluid in the prostate bed. His creatinine is 0.70 and WBC is 5.7. He states he feels better today but still has dysuria, hematuria and scrotal pain. Review of Systems Cardiovascular: Cardiovascular: Denies chest pain Respiratory: Respiratory: Reports no additional respiratory complaints Gastrointestinal: Gastrointestinal: Denies abdominal pain, Denies nausea and Denies vomiting Genitourinary: Genitourinary: Reports hematuria, Reports dysuria, Denies flank pain and Reports testicular pain PMFSH Past Medical History Medical History Colon cancer (2016) Mid sigmoid colectomy [facility] and completed a adjunctive course of chemotherapy. Surgical History Surgical History History of partial colectomy Sigmoid colectomy S/P TURP (status post transurethral resection of prostate) (~03/03/21) Family History Family History Father CHF (congestive heart failure) Mother Patient's mother is in good health Daughter Spina bifida Scoliosis Son In good health Social History Social History Social History: He lives at home with his of 32 years. They have a daughter age 26 has spina bifida. He also have a son who is healthy. He works as a direct of real estate. Is a lifelong nonsmoker, does not drink alcohol or use illicit substances. Code status: Full code Surrogate decision maker: Smoking status: Never smoker Alcohol intake: never Substance use: never Substance use type: does not use Living arrangements: with family Occupation/Education: occupation Gender identity (if verbalized by the patient): Male Sexual Orientation (if Verbalized by the Patient): Straight or Heterosexual Spiritual care concerns: No Agree to blood products: Yes Meds Home Medications and Allergies Home Medications Medication Instructions Recorded Confirmed Type Excedrin Extra Strength 2 tablet PO Q4-6H PRN 02/23/21 03/29/21 History esomeprazole magnesium [Nexium] 20 mg PO DAILY PRN 02/23/21 03/29/21 History docusate sodium [Colace] 100 mg PO DAILY PRN 03/29/21 03/29/21 History Allergies Allergy/AdvReac Type Severity Reaction Status Date / Time No Known Allergies Allergy
[2021-03-29 17:09] VITALS: O2SAT 97
[2021-03-29 22:00] VITALS: BP 120/78; PULSE 81; RESP 18; TEMP 37.6; O2SAT 97
[2021-03-30] MEDS: SODIUM CHLORIDE 0.9% IV 1,000 ML 125 ML IV CONT ×3 (00:08→23:59)
[2021-03-30 05:41] VITALS: BP 115/69; PULSE 77; RESP 18; TEMP 36.9; O2SAT 97
[2021-03-30 06:19] LABS: Basophils Percent Auto 0.2 % (0.2-1.2); Eosinophils Absolute Auto 0.1 K/mm3 (0-0.3); Eosinophils Percent Auto 2.4 % (0-4.4); Hematocrit 35.8 % (42.0-52.0); Hemoglobin 11.3 g/dL (14.0-18.0); Immature Granulocyte Absolute 0.02 K/mm3 (0.00-0.031); Immature Granulocyte Percent A 0.4 % (0-0.5); Lymphocytes Percent Auto 18.7 % (18.3-44.2); Mean Corpuscular HGB Conc 31.6 g/dl (32-36); Mean Corpuscular Volume 91.8 fl (80-100); Mean Platelet Volume 9.7 fl (7.4-10.4); Monocytes Absolute Auto 0.9 K/mm3 (0.1-0.6); Monocytes Percent Auto 16.8 % (2.6-8.5); Neutrophils Absolute Auto 3.3 K/mm3 (1.3-6.7); Neutrophils Percent Auto 61.5 % (45.5-73.1); Platelet Count Result 196 k/mm3 (150-375); Red Cell Distribution Width 14.2 % (11.5-14.5); White Blood Count 5.4 K/mm3 (4.5-10.0)
[2021-03-30 06:33] LABS: Anion Gap 7 mmol/L (8-16); Blood Urea Nitrogen 10 mg/dL (9-20); Calcium 8.3 mg/dL (8.4-10.2); Carbon Dioxide 24 mmol/L (22-30); Chloride 105 mmol/L (98-107); Estimated CRCL calculation 150 ml/min; Estimated Glomerular Filt Rate > 60; Glucose 101 mg/dL (65-110); Potassium 3.9 mmol/L (3.4-5.0); Sodium 136 mmol/L (137-145)
[2021-03-30 06:36] LABS: Transferrin 113 mg/dL (206-381)
[2021-03-30 06:42] LABS: Iron 12 ug/dL (49-181)
[2021-03-30 06:52] LABS: Percent Iron Saturation 6 % (20-50)
[2021-03-30] MEDS: CYANOCOBALAMIN 1,000 MCG TABLET 1000 MCG PO (10:46)
[2021-03-30 11:13] LABS: EDCOVIDSCREEN Negative (Negative)
[2021-03-30 11:16] LABS: Influenza Control Positive
[2021-03-30 11:31] LABS: Add Urine Microscopic? YES; Appearance Urine Cloudy (Clear); Bilirubin Urine Negative (Negative); Blood Urine 2+ (Negative); Color Urine Yellow (Yellow); Glucose Urine UA Negative (Negative); Ketones Urine Trace mg/dL (Negative); Leukocyte Esterase Ur 2+ LEU/UL (Negative); Mucus Urine Rare /lpf; Nitrate Urine Negative (Negative); Protein Urine Negative (Negative); Specific Grav Ur 1.017 (1.001-1.035); Urobilinogen Urine Negative mg/dL (<2.0); WBC Urine >75 /hpf
--- NOTE | 2021-03-30 12:41 | WPDUROPN2 ---
Progress Note: A&P Assessment and Plan (1) Epididymitis, right: Code(s): N45.1 - Epididymitis Status: Acute Assessment and Plan: Not much improvement, continue IV antibiotics, cultures are pending at this time. Will take weeks to resolve, continue scrotal elevation, ICE and NSAID's for pain. Ok to get scrotal US to further evaluate. (2) Urinary tract infection: Qualifiers: Hematuria presence: without hematuria Urinary tract infection type: acute cystitis Qualified Code(s): N30.00 - Acute cystitis without hematuria Code(s): N39.0 - Urinary tract infection, site not specified Status: Acute Assessment and Plan: Continue IV antibiotics, tailor to culture results. Afebrile. (3) Prostate cancer: Code(s): C61 - Malignant neoplasm of prostate Status: Acute Assessment and Plan: Will plan to see Dr. Lozoya in 4-6 weeks s/p discharge. Subjective Subjective Date/Time Seen: 03/30/21 12:41 Patient doing well today, sitting up in bed, tolerating pain and diet well. He continues on IV antibiotics, still having right scrotal tenderness and edema, urine and blood cultures are pending. He is afebrile. Review of Systems Cardiovascular: Cardiovascular: Denies chest pain Respiratory: Respiratory: Reports no additional respiratory complaints Gastrointestinal: Gastrointestinal: Reports abdominal pain (at incisions only with activity), Denies nausea and Denies vomiting Genitourinary: Genitourinary: Reports hematuria, Reports genital pain, Reports dysuria, Denies flank pain, Reports scrotal swelling, Reports testicular pain, Denies urinary frequency and Denies urinary urgency Exam Resp: Effort & Inspection: normal respiratory effort Cardio: Rate: regular rate GI: Inspection: incision (well approximated, no drainage or edema present.) GI Palp: Yes Soft to palpation and No Tenderness to palpation present (GI) : General: Yes no CVA tenderness Scrotum: scrotal swelling Testes: epididymal tenderness on the right Extrem: General: no edema Objective Data Vital Signs Vital Signs: Vital Signs - 24 hr 03/29/21 14:00 03/29/21 17:09 03/29/21 22:00 Temperature 99.3 F 99.7 F H Pulse Rate 85 81 Respiratory Rate 18 18 Blood Pressure 133/67 120/78 Pulse Oximetry 96 97 97 03/30/21 05:41 Temperature 98.4 F Pulse Rate 77 Respiratory Rate 18 Blood Pressure 115/69 Pulse Oximetry 97 Intake/Output Intake/Output: Intake & Output 03/27/21 03/28/21 03/29/21 03/30/21 23:59 23:59 23:59 23:59 Intake Total 4876 1480 Output Total 1000 300 Balance 3876 1180 Meds/Results Medications: Active Medications Generic Name Dose Route Start Last Admin Trade Name Freq PRN Reason Stop Dose Admin Acetaminophen 650 mg 03/29/21 01:52 Acetaminophen 325 Mg Tablet PO Q4H PRN Mild Pain (1-3) or Fever Acetaminophen/Aspirin/Caffeine 2 tablet 03/29/21 06:01 Acetaminophen/Aspirin/Caffeine 250-250-65 Mg Tablet PO Q4-6H PRN Headache Cyanocobalamin 1,000 mcg 03/30/21 09:00 03/30/21 10:46 Cyanocobalamin 1,000 Mcg Tablet PO 1,000 mcg QAM KRYS Administration Docusate Sodium 100 mg 03/29/21 06:01 Docusate Sodium 100 Mg Capsule PO DAILY PRN Constipation Ceftriaxone Sodium/Dextrose 1 gm in 50 mls @ 100 mls/hr 03/29/21 21:00 03/29/21 21:35 Rocephin 1 Gm/D5w 50 Ml IVPB Infused Q24H KRYS Infusion Sodium Chloride 1,000 mls @ 125 mls/hr 03/29/21 01:55 03/30/21 10:46 Normal Saline Iv IV CONT 125 mls/hr .Q8H KRYS Administration Morphine Sulfate 4 mg 03/29/21 01:52 Morphine Sulfate (*Crx) 4 Mg/Ml Inj IV PUSH Q2H PRN Pain Rated 7-10 Ondansetron HCl 4 mg 03/29/21 01:52 Ondansetron Inj 4 Mg/2 Ml Vial IV PUSH Q4H PRN Nausea Pantoprazole Sodium 40 mg 03/29/21 06:01 Pantoprazole 40 Mg Tablet PO DAILY PRN Heartburn Radiology Results: ITS Impressions
[2021-03-30 14:00] VITALS: BP 106/67; PULSE 71; RESP 14; TEMP 36.6; O2SAT 96
--- NOTE | 2021-03-30 15:08 | PM.IMPN ---
Progress Note: A&P Assessment and Plan (1) Urinary tract infection: Qualifiers: Hematuria presence: without hematuria Urinary tract infection type: acute cystitis Qualified Code(s): N30.00 - Acute cystitis without hematuria Code(s): N39.0 - Urinary tract infection, site not specified Status: Acute Assessment and Plan: UA suspicious for UTI -Urine culture growing multiple organisms but I did call the lab to grow them out. The results may have contamination so another urine culture was sent. However, pt has been on abx. -continue ceftriaxone -fever curve tending down (2) Prostate cancer: Code(s): C61 - Malignant neoplasm of prostate Status: Acute Assessment and Plan: Prostate cancer status post prostatectomy. Patient's CT demonstrated cystic (necrotic) bilateral external iliac chain and inguinal lymphadenopathy with a broad differential that were not present on a prior CT. Suspect these findings are due to the patient's recent prostate surgery and lymph node manipulation. -Urology it has been consulted further input and recommendations. (3) Epididymitis, right: Code(s): N45.1 - Epididymitis Status: Acute Assessment and Plan: confirmed by ultrasound, continue ceftriaxone. Since patient is improving, I do not suspect we need to change antibiotics at this time. (4) Aortic stenosis: Code(s): I35.0 - Nonrheumatic aortic (valve) stenosis Status: Acute Assessment and Plan: moderate aortic stenosis noted on echo. I did discuss this with the patient and he is going to follow up with the mass communications instructor for routine monitoring Subjective Date/time seen: 03/30/21 15:08 Interval history: Pt is a 61-year-old male here for UTI/epididymitis. Patient was seen today and states he is feeling better. He did have night sweats again overnight but thinks his fever is better. He says his appetite is increasing. He noticed last night that he had a fever but has not had any fevers since. Pt denies nausea, vomiting, constipation, diarrhea, chest pain, sob, or abdominal pain. Exam Narrative: General: Well developed well nourished patient in NAD HEENT: normocephalic Neck: supple Neuro: Alert and oriented x4 CV:RRR with systolic murmur heard best in the 2nd right ICS that radiates to the carotid Resp:CTA Abd: Soft, non distended. No pain to palpation. Positive bowel sounds Extremities: No swelling, erythema, or pain to palpation. Objective Data Vital Signs Vital Signs: Vital Signs - 24 hr 03/29/21 17:09 03/29/21 22:00 03/30/21 05:41 Temperature 99.7 F H 98.4 F Pulse Rate 81 77 Respiratory Rate 18 18 Blood Pressure 120/78 115/69 Pulse Oximetry 97 97 97 Intake/Output Intake/Output: Intake & Output 03/27/21 03/28/21 03/29/21 03/30/21 23:59 23:59 23:59 23:59 Intake Total 4876 1480 Output Total 1000 300 Balance 3876 1180 Meds/Results Medications: Active Medications Generic Name Dose Route Start Last Admin Trade Name Freq PRN Reason Stop Dose Admin Acetaminophen 650 mg 03/29/21 01:52 Acetaminophen 325 Mg Tablet PO Q4H PRN Mild Pain (1-3) or Fever Acetaminophen/Aspirin/Caffeine 2 tablet 03/29/21 06:01 Acetaminophen/Aspirin/Caffeine 250-250-65 Mg Tablet PO Q4-6H PRN Headache Cyanocobalamin 1,000 mcg 03/30/21 09:00 03/30/21 10:46 Cyanocobalamin 1,000 Mcg Tablet PO 1,000 mcg QAM KRYS Administration Docusate Sodium 100 mg 03/29/21 06:01 Docusate Sodium 100 Mg Capsule PO DAILY PRN Constipation Ceftriaxone Sodium/Dextrose 1 gm in 50 mls @ 100 mls/hr 03/29/21 21:00 03/29/21 21:35 Rocephin 1 Gm/D5w 50 Ml IVPB Infused Q24H KRYS Infusion Sodium Chloride 1,000 mls @ 125 mls/hr 03/29/21 01:55 03/30/21 10:46 Normal Saline Iv IV CONT 125 mls/hr .Q8H KRYS Administration Morphine Sulfate 4 mg 03/29/21 01:52 Morphine Sulfate (*C
[2021-03-30 19:53] VITALS: O2SAT 95
[2021-03-30 22:00] VITALS: BP 131/77; PULSE 72; RESP 18; TEMP 36.6; O2SAT 100
[2021-03-31 06:00] VITALS: BP 113/71; PULSE 66; RESP 14; TEMP 36.6; O2SAT 100
[2021-03-31 06:19] LABS: Hematocrit 34.1 % (42.0-52.0); Hemoglobin 10.7 g/dL (14.0-18.0); Mean Corpuscular HGB Conc 31.4 g/dl (32-36); Mean Corpuscular Hemoglobin 28.5 pg (26-34); Mean Corpuscular Volume 90.9 fl (80-100); Mean Platelet Volume 10.2 fl (7.4-10.4); Platelet Count Result 198 k/mm3 (150-375); Red Blood Count 3.75 M/mm3 (4.6-6.20); White Blood Count 5.2 K/mm3 (4.5-10.0)
[2021-03-31 06:45] LABS: Anion Gap 6 mmol/L (8-16); Blood Urea Nitrogen 11 mg/dL (9-20); CRP 6.2 mg/dL (<1.0); Calcium 8.5 mg/dL (8.4-10.2); Carbon Dioxide 27 mmol/L (22-30); Chloride 106 mmol/L (98-107); Estimated CRCL calculation 150 ml/min; Estimated Glomerular Filt Rate > 60; Glucose 95 mg/dL (65-110); Potassium 4.1 mmol/L (3.4-5.0); Sodium 139 mmol/L (137-145)
--- NOTE | 2021-03-31 08:39 | WPDUROPN2 ---
Progress Note: A&P Assessment and Plan (1) Epididymitis, right: Code(s): N45.1 - Epididymitis Status: Acute (2) Urinary tract infection: Qualifiers: Hematuria presence: without hematuria Urinary tract infection type: acute cystitis Qualified Code(s): N30.00 - Acute cystitis without hematuria Code(s): N39.0 - Urinary tract infection, site not specified Status: Acute (3) Prostate cancer: Code(s): C61 - Malignant neoplasm of prostate Status: Acute Assessment and Plan: Looking better. Suggest discharge on Omnicef 300 bid x2 weeks. F/U with me 2-3 weeks. Subjective Subjective Date/Time Seen: 03/31/21 08:39 Consistent improvement - less scrotal swelling/errythema and tenderness. Review of Systems Cardiovascular: Cardiovascular: Denies chest pain, Denies lightheadedness, Denies palpitations and Denies dyspnea Respiratory: Respiratory: Denies dyspnea Gastrointestinal: Gastrointestinal: Denies diarrhea, Denies nausea and Denies vomiting Genitourinary: Genitourinary: Denies hematuria and Denies dysuria Endocrine: Endocrine: Denies palpitations Exam Const: General: no acute distress Resp: Effort & Inspection: normal respiratory effort GI: Inspection: non-distended GI Palp: No abdominal tenderness and No Guarding due to palpation present (GI) Auscultation: normal bowel sounds Objective Data Vital Signs Vital Signs: Vital Signs - 24 hr 03/30/21 14:00 03/30/21 19:53 03/30/21 22:00 Temperature 97.9 F 97.9 F Pulse Rate 71 72 Respiratory Rate 14 18 Blood Pressure 106/67 131/77 Pulse Oximetry 96 95 100 03/31/21 06:00 Temperature 97.8 F Pulse Rate 66 Respiratory Rate 14 Blood Pressure 113/71 Pulse Oximetry 100 Intake/Output Intake/Output: Intake & Output 03/28/21 03/29/21 03/30/21 03/31/21 23:59 23:59 23:59 23:59 Intake Total 4876 3460 400 Output Total 1000 300 Balance 3876 3160 400 Meds/Results Medications: Active Medications Generic Name Dose Route Start Last Admin Trade Name Freq PRN Reason Stop Dose Admin Acetaminophen 650 mg 03/29/21 01:52 Acetaminophen 325 Mg Tablet PO Q4H PRN Mild Pain (1-3) or Fever Acetaminophen/Aspirin/Caffeine 2 tablet 03/29/21 06:01 Acetaminophen/Aspirin/Caffeine 250-250-65 Mg Tablet PO Q4-6H PRN Headache Cyanocobalamin 1,000 mcg 03/30/21 09:00 03/30/21 10:46 Cyanocobalamin 1,000 Mcg Tablet PO 1,000 mcg QAM KRYS Administration Docusate Sodium 100 mg 03/29/21 06:01 Docusate Sodium 100 Mg Capsule PO DAILY PRN Constipation Ceftriaxone Sodium/Dextrose 1 gm in 50 mls @ 100 mls/hr 03/29/21 21:00 03/31/21 04:27 Rocephin 1 Gm/D5w 50 Ml IVPB 100 mls/hr Q24H KRYS Infusion Morphine Sulfate 4 mg 03/29/21 01:52 Morphine Sulfate (*Crx) 4 Mg/Ml Inj IV PUSH Q2H PRN Pain Rated 7-10 Ondansetron HCl 4 mg 03/29/21 01:52 Ondansetron Inj 4 Mg/2 Ml Vial IV PUSH Q4H PRN Nausea Pantoprazole Sodium 40 mg 03/29/21 06:01 Pantoprazole 40 Mg Tablet PO DAILY PRN Heartburn Radiology Results: ITS Impressions Chest X-Ray 03/28/21 22:52 Impression: 1: Left basilar infiltrates may represent atelectasis and/or pneumonia. Abdomen/Pelvis CT 03/29/21 07:18 IMPRESSION: 1. Bladder wall thickening, consistent with cystitis given the patient's urinalysis results. 2. Bilateral pelvic fluid collections along the expected course of recent lymph node dissection and fluid in the prostatectomy bed, likely postoperative, abscess considered less likely. Scrotum Ultrasound 03/30/21 14:10 IMPRESSION: Enlarged hypervascular right epididymis consistent with epididymitis. Labs Labs: Laboratory Results - last 24 hr 03/30/21 03/30/21 03/30/21 10:37 10:38 10:38 WBC RBC Hgb Hct MCV MCH MCHC RDW Plt Count MPV Sodium Potassium Chloride
--- NOTE | 2021-03-31 08:42 | PM.DS ---
DS: Admitting Diagnosis Discharge Date 03/31/21 Admitting Diagnosis uti DS: Discharge Diagnosis Discharge Diagnosis (1) Urinary tract infection: Qualifiers: Hematuria presence: without hematuria Urinary tract infection type: acute cystitis Qualified Code(s): N30.00 - Acute cystitis without hematuria Code(s): N39.0 - Urinary tract infection, site not specified Status: Acute Assessment and Plan: UA suspicious for UTI and urine culture grew multiple organisms. I did call microbiology who said that there were some variety of organisms but it did grow E coli -patient receives ceftriaxone while hospitalized and did well with this. He was discharged on cefdinir -repeat urine culture grew less than 10,000 gram negative organism indicating that the antibiotic is likely eradicating the infection -patient had been afebrile but that had resolved -I spoke with Urology who is okay with discharge. Patient is feeling better and would like to go. We will monitor cultures until finalized. Blood cultures no growth today (2) Prostate cancer: Code(s): C61 - Malignant neoplasm of prostate Status: Acute Assessment and Plan: Prostate cancer status post prostatectomy. Patient's CT demonstrated cystic (necrotic) bilateral external iliac chain and inguinal lymphadenopathy with a broad differential that were not present on a prior CT. Suspect these findings are due to the patient's recent prostate surgery and lymph node manipulation. -follow-up with urology (3) Epididymitis, right: Code(s): N45.1 - Epididymitis Status: Acute Assessment and Plan: confirmed by ultrasound, continue cefdinir outpatient (4) Aortic stenosis: Code(s): I35.0 - Nonrheumatic aortic (valve) stenosis Status: Acute Assessment and Plan: moderate aortic stenosis noted on echo. I did discuss this with the patient and he is going to follow up with the college teacher for routine monitoring DS: Summary Hospital Course Hospital Course: dos 03/31/21 Patient is a 61-year-old male with a past medical history recent diagnosis of prostate cancer who recently had a TURP who presented emergency room for turbid urine and fever. Vitals in the ER were temperature 39.0? C, pulse 101, respiratory rate 20, blood pressure 131/88, pulse ox 94 on room air. Initial white blood cell count normal, hemoglobin 12.0, hematocrit 36.8, platelets 234. BMP with mild abnormalities of sodium 133 and glucose 133. UA suspicious for UTI. Lactic acid normal. Patient was admitted to the hospitalist service and started on ceftriaxone. He also had a scrotal ultrasound which showed epididymitis. He continued to have high fevers but his blood cultures remain negative. He was tested for COVID and influenza and that was negative as well. Urology was consulted and recommended cefdinir outpatient and Neurology follow-up. Please see above for culture details. During his stay he had a loud murmur which he was not aware of. In an echo showed moderate aortic stenosis and he is going to follow up with Cardiology for routine monitoring. He also was slightly anemic and found to be low in B12 and this was replaced. The day of discharge she was feeling much better and was afebrile. He was educated about the worrisome signs and symptoms to come back to the emergency room for and was discharged stable condition. His cultures will be monitored until finalized and he is going to follow up with Urology. Status at Discharge Functional status at discharge: independent ambulation Time Spent with Patient Time attestation: Total time spent providing and/or coordinating discharge services: 38 minutes Time spent: Greater than 30 minutes Exam Narrative: General: Well developed well nourished patient in NAD HEENT: normocephalic Neck: supple Neuro: Alert and oriented x4 CV:RRR with systolic murmur heard best in the 2nd right ICS that
[2021-03-31] MEDS: CYANOCOBALAMIN 1,000 MCG TABLET 1000 MCG PO (09:50)
--- NOTE | 2021-04-01 06:43 | PC.NURSE ---
Urine cx #2 less than 10,000 single gram negative organisms. Contamination. OLENA Noriega aware.
--- NOTE | 2021-04-05 09:49 | PC.NURSE ---
Administration of Rocephin on 03/30/21 infused over a duration of 30 minutes. It is documented in the MAR as starting at 2051 and still running at 0427 on 03/31, with a completion time of 0700 on 03/31, which is not correct.
--- NOTE | 2021-04-08 10:11 | PC.NURSE ---
Urine cx #1 shows ESBL. Urine cx #2 shows gram negative organism. OLENA Noriega aware.
== END 2021-03-31 13:54 | disposition home or self-care (01) ==
LOC: ANHED 03-29 01:58 → ANH3MEDSUR 03-29 02:12
PROVIDERS: Physician Assistant; Admitting Provider Internal Medicine; Emergency Provider Emergency Medicine; Visit Provider Family Medicine
DX: N30.00 Acute cystitis without hematuria (principal); B96.20 Unspecified Escherichia coli [E. coli] as the cause of diseases classified elsewhere; N45.1 Epididymitis; I35.0 Nonrheumatic aortic (valve) stenosis; R50.9 Fever, unspecified; R82.90 Unspecified abnormal findings in urine; R01.1 Cardiac murmur, unspecified; Z90.79 Acquired absence of other genital organ(s); Z85.46 Personal history of malignant neoplasm of prostate; Z85.038 Personal history of other malignant neoplasm of large intestine; Z20.822 Contact with and (suspected) exposure to COVID-19
CPT/HCPCS: 36415; 71046; 74177; 76870; 80048; 80053; 81001; 82607; 82728; 82746; 83540; 83550; 83605; 84466; 85025; 85027; 85610; 85730; 86140; 87040; 87077; 87086; 87088; 87426; 87804; 93306; 93976; 96361; 96365; 96366; 96375; 99285; A9270; C9803; G0378; J0696; J7030; Q9967

== ENCOUNTER 2021-04-09 11:04 | Inpatient (IN) | payer BC, SELFPAY ==
--- NOTE | ~2021-04-09 | US_ITS ---
EXAMINATION: US scrotum doppler DATE: 04/09/2021 12:27 INDICATION: Testicular pain and swelling TECHNIQUE: Testicular sonogram utilizing grayscale and Doppler COMPARISON: 03/30/2021 FINDINGS: The right testis measures 3.8 x 2.9 x 3.4 cm. The left testis measures 4.6 x 3.5 x 4.0 cm. Symmetric normal grayscale appearance to both testes. Vascular flow identified within both testes on color Dopp ler with asymmetric increased vascular flow to the right testis. Again seen are bilateral anechoic ep ididymal head cyst measuring 1.6 cm on the right and 1.2 cm on the left. The right epididymis appears swollen with heterogeneous decreased echogenicity and with asymmetric increased vascular flow on col or Doppler. The left epididymis is normal with normal vascular flow. Bilateral small hydroceles which appears simple and homogeneous anechoic in the right hemiscrotum and complex with multiple thin line ar internal septations and small amount of hypoechoic debris in the left hemiscrotum. No varicocele. IMPRESSION: 1. Left-sided epididymoorchitis with small complex left hydrocele. Reviewed, dictated and finalized at location A.
--- NOTE | ~2021-04-09 | CT_ITS ---
EXAMINATION: CT abdomen pelvis w con DATE: 04/09/2021 12:40 INDICATION: Abdominal pain, fever, dysuria and testicular swelling. TECHNIQUE: Computed tomography (CT) of the abdomen and pelvis was performed with 100 mL Omnipaque-350 intravenous contrast. Automated exposure control and iterative reconstruction technique were employe d. The dose-length product was 745.98 mGy-cm. COMPARISON: 03/28/2021 FINDINGS: Lung bases are clear. Heart size is normal. No pericardial or pleural effusion. Aortic valve calcific ation. Small sliding-type hiatal hernia. Focal hepatic steatosis at the ligamentum teres. Gallbladder , spleen, pancreas, bilateral adrenal glands and left kidney are normal. 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 Unclear whether these fused before the bl adder. Small duodenal diverticulum along the third portion of the duodenum. No bowel obstruction. Status post prior partial colectomy with sigmoid anastomotic suture line. Again seen are changes of p rior transurethral prostatectomy. Bilateral hydroceles at the scrotum and hyperemia along the left sp ermatic cord and epididymis consistent with left-sided epididymoorchitis as also seen on prior ultras ound. Wall thickening of the partially decompressed bladder to at least in part to decompressed state although there is inflammatory stranding in the pelvis surrounding the bladder and seminal vesicles. Small amount of likely reactive free fluid in the pelvis. Interval decrease in size of small loculat ed fluid collections along the external iliac vessels likely representing resolving hematoma/seromas related to earlier pelvic lymph node dissection. No pathologically enlarged abdominal or pelvic lymph adenopathy. Very small fat-containing umbilical hernia. Moderate scattered degenerative skeletal venegas ges. IMPRESSION: 1. Left-sided epididymoorchitis. 2. From trace stranding and small amount of likely reactive free fluid in the pelvis likely related t o combination of left epididymoorchitis and likely associated seminal vesiculitis and potentially res idual postoperative changes related to reported recent prostatectomy. Differential would include cyst itis and would correlate with urinalysis. 3. Decrease in size of small fluid collections along the bilateral external iliac chains likely resol ving hematomas or seromas related to bilateral pelvic lymph node dissections. Reviewed, dictated and finalized at location A. IMPRESSION: 1. Left-sided epididymoorchitis. 2. From trace stranding and small amount of likely reactive free fluid in the p nancy likely related to combination of left epididymoorchitis and likely associ ated seminal vesiculitis and potentially residual postoperative changes related to reported recent prostatectomy. Differential would include cystitis and woul d correlate with urinalysis. 3. Decrease in size of small fluid collections along the bilateral external oscar ac chains likely resolving hematomas or seromas related to bilateral pelvic lym ph node dissections.
[2021-04-09 11:08] VITALS: BP 127/79; PULSE 86; RESP 16; TEMP 36.7; O2SAT 97
--- NOTE | 2021-04-09 11:30 | ED.ABDPAIN ---
HPI - Abdominal Pain General Chief Complaint: Urogenital-Male Stated Complaint: uti Time Seen by Provider: 04/09/21 11:07 Source: patient Mode of arrival: ambulatory Limitations: no limitations History of Present Illness HPI narrative: This is a 61-year-old male that presents to the emergency department for urinary discomfort noted over the last couple of days. Associated with left-sided abdominal pain and testicular swelling. He was recently discharged from the hospital after a urinary tract infection. He has been taking cefdinir. He was called today by the hospitalist and told that his culture resulted and that his antibiotic therapy needed to be changed. With worsening pain and testicular swelling he was prompted to come to the emergency department. Dr. Lozyoa is his Urologist. Patient had a robotic prostatectomy March 03. Does report low-grade fevers. Denies nausea, vomiting, or hematuria. Related Data Home Medications Medication Instructions Recorded Confirmed Excedrin Extra Strength 2 tablet PO Q4-6H PRN 02/23/21 03/29/21 esomeprazole magnesium [Nexium] 20 mg PO DAILY PRN 02/23/21 03/29/21 docusate sodium [Colace] 100 mg PO DAILY PRN 03/29/21 03/29/21 Allergies Allergy/AdvReac Type Severity Reaction Status Date / Time No Known Allergies Allergy Verified 03/29/21 03:05 Review of Systems Review of Systems: CONSTITUTIONAL: Denies fever GASTROINTESTINAL: Reports abdominal pain. Denies nausea, vomiting, or diarrhea. GENITOURINARY: Reports dysuria. Denies hematuria. All systems reviewed & are unremarkable except as noted in HPI and below PMFSH Past Medical History Medical History Colon cancer (2016) Mid sigmoid colectomy [facility] and completed a adjunctive course of chemotherapy. Surgical History Surgical History History of partial colectomy Sigmoid colectomy S/P TURP (status post transurethral resection of prostate) (~03/03/21) Family History Family History Father CHF (congestive heart failure) Mother Patient's mother is in good health Daughter Spina bifida Scoliosis Son In good health Social History Social History Social History: He lives at home with his of 32 years. They have a daughter age 26 has spina bifida. He also have a son who is healthy. He works as a educational coordinator. Is a lifelong nonsmoker, does not drink alcohol or use illicit substances. Code status: Full code Surrogate decision maker: Smoking status: Never smoker Alcohol intake: never Substance use: never Substance use type: does not use Gender identity (if verbalized by the patient): Male Sexual Orientation (if Verbalized by the Patient): Straight or Heterosexual Spiritual care concerns: No Agree to blood products: Yes Exam Narrative: GENERAL: Well-appearing, well-nourished, and in no acute distress. HEAD: Normocephalic, atraumatic. EYES: EOMI. ENT: Mucous membranes moist. Oropharynx without tonsillar hypertrophy exudate or other lesions. CHEST: Clear to auscultation. No respiratory distress. No wheezes rales or rhonchi HEART: Regular rate and rhythm. Normal peripheral pulses. ABDOMEN: Soft, nondistended, normal active bowel sounds. Tender to palpation throughout the left side of the abdomen, without guarding. No CVA tenderness EXTREMITIES: Normal range of motion. No edema. SKIN: Warm, dry, no rash. NEURO: No focal deficits. Alert and oriented x3. PSYCH: Normal mood and affect Course Vital Signs Vital signs: Vital Signs Temperature 98.1 F 04/09/21 11:08 Pulse Rate 86 04/09/21 11:08 Respiratory Rate 16 04/09/21 11:08 Blood Pressure 127/79 04/09/21 11:08 Pulse Oximetry 97 04/09/21 11:08 Temperature 98.1 F 04/09
[2021-04-09] MEDS: SODIUM CHLORIDE 0.9% IV 500 ML 999 ML IV CONT (11:42)
[2021-04-09 11:51] LABS: Basophils Percent Auto 0.2 % (0.2-1.2); Eosinophils Percent Auto 0.1 % (0-4.4); Hematocrit 38.7 % (42.0-52.0); Hemoglobin 12.5 g/dL (14.0-18.0); Immature Granulocyte Percent A 0.6 % (0-0.5); Lymphocytes Absolute Auto 1.14 K/mm3 (0.9-3.2); Lymphocytes Percent Auto 6.5 % (18.3-44.2); Mean Corpuscular HGB Conc 32.3 g/dl (32-36); Mean Corpuscular Hemoglobin 28.9 pg (26-34); Mean Corpuscular Volume 89.6 fl (80-100); Mean Platelet Volume 9.3 fl (7.4-10.4); Monocytes Absolute Auto 1.4 K/mm3 (0.1-0.6); Monocytes Percent Auto 7.8 % (2.6-8.5); Neutrophils Absolute Auto 14.9 K/mm3 (1.3-6.7); Neutrophils Percent Auto 84.8 % (45.5-73.1); Platelet Count Result 423 k/mm3 (150-375); Red Blood Count 4.32 M/mm3 (4.6-6.20); Red Cell Distribution Width 14.4 % (11.5-14.5); White Blood Count 17.6 K/mm3 (4.5-10.0)
[2021-04-09 12:04] LABS: Prothrombin Time 13.3 Seconds (11.1-14.7)
[2021-04-09 12:05] LABS: Partial Thromboplastin Time 30.6 SECONDS (22.3-36.8)
[2021-04-09 12:07] LABS: Lactic Acid Reflex 1.3 mmol/L (0.7-2.1)
[2021-04-09 12:11] LABS: Alanine Aminotransferase 22 U/L (4-50); Albumin Level 4.2 g/dL (3.5-5.1); Alkaline Phosphatase 97 U/L (38-126); Anion Gap 7 mmol/L (8-16); Aspartate Amino Transferase 23 U/L (17-59); Bilirubin,Total 0.7 mg/dL (0.2-1.3); Blood Urea Nitrogen 13 mg/dL (9-20); CRP 7.4 mg/dL (<1.0); Calcium 9.3 mg/dL (8.4-10.2); Carbon Dioxide 25 mmol/L (22-30); Chloride 103 mmol/L (98-107); Estimated CRCL calculation 150 ml/min; Estimated Glomerular Filt Rate > 60; Glucose 125 mg/dL (65-110); Potassium 4.2 mmol/L (3.4-5.0); Sodium 135 mmol/L (137-145)
[2021-04-09 12:24] LABS: Add Urine Microscopic? YES; Appearance Urine Cloudy (Clear); Bilirubin Urine 1+ (Negative); Blood Urine 3+ (Negative); Color Urine Amber (Yellow); Glucose Urine UA 1+ mg/dL (Negative); Ketones Urine Trace mg/dL (Negative); Leukocyte Esterase Ur 3+ LEU/UL (Negative); Mucus Urine Heavy /lpf; Nitrate Urine Negative (Negative); Protein Urine 2+ mg/dL (Negative); Urobilinogen Urine Negative mg/dL (<2.0); WBC Urine >75 /hpf
[2021-04-09 12:31] LABS: Specific Grav Ur 1.041 (1.001-1.035)
[2021-04-09 13:24] VITALS: BP 152/104; PULSE 96; RESP 18; O2SAT 98
[2021-04-09] MEDS: SODIUM CHLORIDE 0.9% IV 1,000 ML 999 ML IV CONT (13:24)
--- NOTE | 2021-04-09 14:23 | ADMGEN ---
This patient, Rohit Nieto, was admitted to Medical Room 348-01. Patient/family oriented to hospital policies and general routines including ID bracelet, bed and alarms, visiting hours, pain management, procedures, bathroom and other care routines, personal items, smoking policy, room service/diet, and visiting hours. Information on how to activate the Rapid Response Team has been discussed. Patient/Family are encouraged to report perceived risks to care and to ask questions if they do not understand what they are told or what they should do.
[2021-04-09 14:43] VITALS: BP 149/84; PULSE 106; RESP 16; TEMP 36.7; O2SAT 100; BMI 28.1
[2021-04-09 15:55] VITALS: TEMP 37.9
--- NOTE | 2021-04-09 17:36 | PM.IMHP ---
H&P: HPI History of Present Illness Date/Time: 04/09/21 17:36Thimorgan is a 61-year-old male patient who has a history of colon cancer and prostate cancer. The patient CC Urology here. Patient was discharged from here on 03/31/2021 with Cefdinir . The patient was called today by our hospitalist group who explained that she received the sensitivities and that she he has ESBL that is resistant to the medication that he is on and that he needs to come back to the emergency room to be re-evaluated. Patient is complaining of pain and swelling to his left testicle. The patient had a robotic prostatectomy on March 03. Patient is complaining of some nausea and indigestion. He is complaining of fevers. White count is 17.6. H&H is 12.5 and 38.7. Patient was found to be positive for UTI and started on cefepime. Abdominal pelvis CT was read as 1. Left-sided epididymoorchitis. 2. From trace stranding and small amount of likely reactive free fluid in the pelvis likely related to combination of left epididymoorchitis and likely associated seminal vesiculitis and potentially residual postoperative changes related to reported recent prostatectomy. Differential would include cystitis and would correlate with urinalysis. 3. Decrease in size of small fluid collections along the bilateral external iliac chains likely resolving hematomas or seromas related to bilateral pelvic lymph node dissections. scrotum ultrasound was read as left-sided epididymoorchitis with small complex left hydrocele. the patient was placed on observation status on the date of service of 04/09/2021 Chief Complaint: Urinary tract infection with positive cultures Review of Systems Review of Systems: All systems reviewed & are unremarkable except as noted in HPI and below Constitutional: Constitutional: Reports as per HPI and Reports no additional constitutional complaints Eyes: Eyes: Reports as per HPI and Reports no additional eye complaints ENT: Reports system reviewed and no additional complaints, except as documented and Reports Normal hearing present Cardiovascular: Cardiovascular: Reports no additional cardiovascular complaints Respiratory: Respiratory: Reports no additional respiratory complaints and Reports no additional respiratory complaints Gastrointestinal: Gastrointestinal: Reports as per HPI and Reports no additional gastrointestinal complaints Musculoskeletal: Musculoskeletal: Reports no additional musculoskeletal complaints Integumentary/Breasts: Skin/Breast: Reports system reviewed and no additional complaints, except as docu and Reports as per HPI Neurologic: Reports system reviewed and no additional complaints, except as documented, Reports as per HPI and Reports Normal hearing present Psychiatric: Psychiatric: Reports no additional psychiatric complaints and Reports as per HPI Endocrine: Endocrine: Reports no additional endocrine complaints Hematologic/Lymphatic: Hematologic/Lymphatic: Reports no additional hematologic/lymphatic complaints Allergic/Immunologic: Allergic/Immunologic: Reports no additional allergic/immunologic complaints [facility] Past Medical History Medical History (Updated 04/09/21 @ 18:33 by Martine Keating NP) Chronic GERD Colon cancer (2016) Mid sigmoid colectomy [facility] and completed a adjunctive course of chemotherapy. Prostate cancer Surgical History Surgical History History of partial colectomy Sigmoid colectomy S/P TURP (status post transurethral resection of prostate) (~03/03/21) Family History Family History Father CHF (congestive heart failure) Mother Patient's mother is in good health Daughter Spina bifida Scoliosis Son In good health Social History Social History (Updated 04/09/21 @ 17:50 by Martine Keating NP) Social History: He lives at home with his of 32 years.
[2021-04-09] MEDS: PANTOPRAZOLE 40 MG TABLET PO (17:47)
[2021-04-09] MEDS: CALCIUM CARBONATE (TUMS) 500 MG (200 MG ELEMENTAL) PO (17:48)
[2021-04-09 20:13] VITALS: BP 116/73; PULSE 101; RESP 17; TEMP 36.4; O2SAT 95
[2021-04-09] MEDS: ACETAMINOPHEN/ASPIRIN/CAFFEINE 250-250-65 MG TABLET 2 TABLET PO (21:11)
--- NOTE | 2021-04-10 01:18 | PC.NURSE ---
Daylight Savings Time For Daylight Savings Time Ending in the Fall - Clocks are moved back. For Daylight Savings Time Beginning in the Spring - Clocks are moved ahead. For [facility], the time of change occurs at 0200 hrs. Time is taken from the buffet server. This entry on the patient's chart recognizes the change in time reflected during documentation. Example: 2 entries for vital signs may be charted for 0200 hrs.
[2021-04-10 04:01] VITALS: BP 105/61; PULSE 68; RESP 17; TEMP 36.9; O2SAT 100
[2021-04-10] MEDS: ENOXAPARIN 40 MG/0.4 ML SYRINGE SUB-Q (07:47)
[2021-04-10] MEDS: SACCHAROMYCES BOULARDII 250 MG CAPSULE PO (07:47)
[2021-04-10] MEDS: PANTOPRAZOLE 40 MG TABLET PO (07:47)
[2021-04-10] MEDS: CYANOCOBALAMIN 1,000 MCG TABLET 1000 MCG PO (07:47)
[2021-04-10 08:21] LABS: Anion Gap 5 mmol/L (8-16); Blood Urea Nitrogen 16 mg/dL (9-20); Calcium 9.2 mg/dL (8.4-10.2); Carbon Dioxide 29 mmol/L (22-30); Chloride 104 mmol/L (98-107); Estimated CRCL calculation 150 ml/min; Estimated Glomerular Filt Rate > 60; Glucose 119 mg/dL (65-110); Potassium 4.2 mmol/L (3.4-5.0); Sodium 138 mmol/L (137-145)
[2021-04-10 08:33] LABS: Basophils Percent Auto 0.2 % (0.2-1.2); Eosinophils Absolute Auto 0.2 K/mm3 (0-0.3); Eosinophils Percent Auto 1.5 % (0-4.4); Hematocrit 38.2 % (42.0-52.0); Hemoglobin 12.1 g/dL (14.0-18.0); Immature Granulocyte Absolute 0.07 K/mm3 (0.00-0.031); Immature Granulocyte Percent A 0.5 % (0-0.5); Lymphocytes Absolute Auto 1.17 K/mm3 (0.9-3.2); Lymphocytes Percent Auto 9.2 % (18.3-44.2); Mean Corpuscular HGB Conc 31.7 g/dl (32-36); Mean Corpuscular Hemoglobin 28.1 pg (26-34); Mean Corpuscular Volume 88.6 fl (80-100); Mean Platelet Volume 9.5 fl (7.4-10.4); Neutrophils Absolute Auto 10.3 K/mm3 (1.3-6.7); Neutrophils Percent Auto 80.6 % (45.5-73.1); Platelet Count Result 430 k/mm3 (150-375); Red Blood Count 4.31 M/mm3 (4.6-6.20); Red Cell Distribution Width 14.7 % (11.5-14.5); White Blood Count 12.8 K/mm3 (4.5-10.0)
--- NOTE | 2021-04-10 08:41 | WPDURCON ---
Assessment and Plan Assessment and plan (1) Epididymitis, left: Code(s): N45.1 - Epididymitis Status: Acute Assessment and Plan: Continue with iv abx., scrotal support. Will add ice pack. Await cultures. Dr Lozoay to see in am. Urology Consult Note HPI Date Seen: 04/10/21 Requesting Physician: Rashmi Xiao PA-C Primary Care Provider: PHYSICIAN NOT ON STAFF Consult Narrative Narrative: Rohit Nieto is a 61 year old male who is well known to Dr. Lozoya. Patient had a radical prostatectomy in the recent past and has been dealing with epididymal orchitis. He was recently treated for what was felt to be right epididymal orchitis but then developed swelling with pain in the left hemiscrotum. He presented to the emergency room for evaluation. [place] [address] as well as a UA that was 3+ leukocyte esterase positive in greater than 75 white cells. Denies any significant voiding symptoms at this time. A CT and ultrasound were performed which were consistent with left epididymal orchitis. He is admitted for IV antibiotics. At the time of my evaluation this morning patient is feeling better. Review of Systems Review of Systems: All systems reviewed & are unremarkable except as noted in HPI and below PMFSH Past Medical History Medical History Chronic GERD Colon cancer (2016) Mid sigmoid colectomy [facility] and completed a adjunctive course of chemotherapy. Prostate cancer Surgical History Surgical History History of partial colectomy Sigmoid colectomy S/P TURP (status post transurethral resection of prostate) (~03/03/21) Family History Family History Father CHF (congestive heart failure) Mother Patient's mother is in good health Daughter Spina bifida Scoliosis Son In good health Social History Social History Social History: He lives at home with his of 32 years. They have a daughter age 26 has spina bifida. He also have a son who is healthy. He works as a paving and surfacing labourer. Is a lifelong nonsmoker, does not drink alcohol or use illicit substances. the patient has 2 children Code status: Full code Surrogate decision maker: Smoking status: Never smoker Alcohol intake: former Substance use: never Substance use type: does not use Gender identity (if verbalized by the patient): Male Sexual Orientation (if Verbalized by the Patient): Straight or Heterosexual Spiritual care concerns: No Agree to blood products: Yes Meds Home Medications and Allergies Home Medications Medication Instructions Recorded Confirmed Type Excedrin Extra Strength 2 tablet PO Q4-6H PRN 02/23/21 04/09/21 History esomeprazole magnesium [Nexium] 20 mg PO DAILY PRN 02/23/21 04/09/21 History docusate sodium [Colace] 100 mg PO DAILY PRN 03/29/21 04/09/21 History cyanocobalamin (vitamin B-12) 1,000 mcg PO QAM #30 tablet 03/31/21 04/09/21 Rx [Vitamin B-12] Saccharomyces boulardii [Florastor] 250 mg PO DAILY 04/09/21 04/09/21 History Allergies Allergy/AdvReac Type Severity Reaction Status Date / Time No Known Allergies Allergy Verified 04/09/21 14:39 Vital Signs Vital Signs - 24 hr 04/09/21 11:08 04/09/21 13:24 04/09/21 14:43 Temperature 36.7 C 36.7 C Pulse Rate 86 96 106 H Respiratory Rate 16 18 16 Blood Pressure 127/79 152/104 H 149/84 H Pulse Oximetry 97 98 100 04/09/21 15:55 04/09/21 20:13 04/10/21 04:01 Temperature 37.9 C H 36.4 C L 36.9 C Pulse Rate 101 H 68 Respiratory Rate 17 17 Blood Pressure 116/73 105/61 Pulse Oximetry 95 100 Exam Const: General: cooperative and comfortable HENMT: Head: normal to inspection Eyes: General: appearance normal, b
--- NOTE | 2021-04-10 09:54 | PM.IMPN ---
Progress Note: A&P Assessment and Plan (1) Epididymitis, left: Code(s): N45.1 - Epididymitis Status: Acute Assessment and Plan: Continue cefepime, patient is clinically improving and his white blood cell count has improved as well - his urine culture from 03/28 ended up growing ESBL and sensitivities were delayed. There is a hard copy of the sensitivities that shows it is sensitive to cefepime so we will continue with that until we get the repeat cultures. Of note, last stay he had RIGHT sided epididymitis. - blood cultures have no growth to date - urology on board (2) Prostate cancer: Code(s): C61 - Malignant neoplasm of prostate Status: Acute Assessment and Plan: The patient had a prostatectomy and stated he is cancer-free (3) Urinary tract infection: Qualifiers: Hematuria presence: without hematuria Urinary tract infection type: acute cystitis Qualified Code(s): N30.00 - Acute cystitis without hematuria Code(s): N39.0 - Urinary tract infection, site not specified Status: Acute Assessment and Plan: as above, continue cefepime (4) Chronic GERD: Code(s): K21.9 - Gastro-esophageal reflux disease without esophagitis Status: Acute Assessment and Plan: chronic, continue protonix Time Spent With Patient Time with patient: 25 - 35 minutes Subjective Date/time seen: 04/10/21 09:54 Interval history: Pt is a 61-year-old male here for epididymitis. Patient was seen today and is doing better today. He said the last couple days he has not really been eating and has not been feeling himself. He has very low energy and has been having swelling to his testicle. he did eat a little breakfast today and is already feeling a little better. He denies chest pain or shortness of breath. Review of Systems Review of Systems: All systems reviewed & are unremarkable except as noted in HPI and below Exam Narrative: General: Well developed well nourished patient in NAD HEENT: normocephalic Neck: supple Neuro: Alert and oriented x4 CV:RRR with systolic murmur heard best at right 2nd intercostal space Resp:CTA Abd: Soft, non distended. No pain to palpation. Positive bowel sounds Extremities: No swelling, erythema, or pain to palpation. Objective Data Vital Signs Vital Signs: Vital Signs - 24 hr 04/09/21 11:08 04/09/21 13:24 04/09/21 14:43 Temperature 98.1 F 98.1 F Pulse Rate 86 96 106 H Respiratory Rate 16 18 16 Blood Pressure 127/79 152/104 H 149/84 H Pulse Oximetry 97 98 100 04/09/21 15:55 04/09/21 20:13 04/10/21 04:01 Temperature 100.3 F H 97.5 F L 98.4 F Pulse Rate 101 H 68 Respiratory Rate 17 17 Blood Pressure 116/73 105/61 Pulse Oximetry 95 100 Intake/Output Intake/Output: Intake & Output 04/07/21 04/08/21 04/09/21 04/10/21 23:59 23:59 23:59 22:59 Intake Total 600 690 Output Total 575 600 Balance 25 90 Meds/Results Medications: Active Medications Generic Name Dose Route Start Last Admin Trade Name Freq PRN Reason Stop Dose Admin Acetaminophen/Aspirin/Caffeine 2 tablet 04/09/21 17:38 04/09/21 21:11 Acetaminophen/Aspirin/Caffeine 250-250-65 Mg Tablet PO 2 tablet Q4-6H PRN Administration Pain Calcium Carbonate 200 mg 04/09/21 17:32 04/09/21 17:48 Calcium Carbonate (Tums) 500 Mg (200 Mg Elemental) PO 200 mg Q6H PRN Administration Indigestion Cyanocobalamin 1,000 mcg 04/10/21 09:00 04/10/21 07:47 Cyanocobalamin 1,000 Mcg Tablet PO 1,000 mcg QAM KRYS Administration Docusate Sodium 100 mg 04/09/21 17:38 Docusate Sodium 100 Mg Capsule PO DAILY PRN Constipation Enoxaparin Sodium 40 mg 04/10/21 09:00 04/10/21 07:47 Enoxaparin 40 Mg/0.4 Ml Syringe SUB-Q 40 mg DAILY KRYS Administration Cefepime HCl 2 gm in 50 mls @ 100 mls/hr 04/09/21 22:00 04/10/21 05:40 Maxipime 2 Gm/D5w 50 Ml IVPB Infused
[2021-04-10 14:42] VITALS: BP 118/80; PULSE 80; RESP 18; TEMP 36.9; O2SAT 100
[2021-04-10 21:19] VITALS: BP 118/78; PULSE 77; RESP 16; TEMP 36.9; O2SAT 95
[2021-04-10] MEDS: ACETAMINOPHEN 325 MG TABLET 650 MG PO (22:04)
[2021-04-11 05:49] VITALS: BP 117/60; PULSE 68; RESP 16; TEMP 36.1; O2SAT 96
[2021-04-11 06:15] LABS: Basophils Percent Auto 0.3 % (0.2-1.2); Eosinophils Absolute Auto 0.4 K/mm3 (0-0.3); Eosinophils Percent Auto 3.5 % (0-4.4); Hematocrit 36.9 % (42.0-52.0); Hemoglobin 11.8 g/dL (14.0-18.0); Immature Granulocyte Absolute 0.05 K/mm3 (0.00-0.031); Immature Granulocyte Percent A 0.5 % (0-0.5); Lymphocytes Percent Auto 9.9 % (18.3-44.2); Mean Corpuscular Hemoglobin 28.1 pg (26-34); Mean Corpuscular Volume 87.9 fl (80-100); Mean Platelet Volume 9.3 fl (7.4-10.4); Monocytes Absolute Auto 0.9 K/mm3 (0.1-0.6); Monocytes Percent Auto 7.9 % (2.6-8.5); Neutrophils Absolute Auto 8.6 K/mm3 (1.3-6.7); Neutrophils Percent Auto 77.9 % (45.5-73.1); Platelet Count Result 403 k/mm3 (150-375); Red Cell Distribution Width 14.7 % (11.5-14.5); White Blood Count 11.1 K/mm3 (4.5-10.0)
[2021-04-11 06:34] LABS: Anion Gap 8 mmol/L (8-16); Blood Urea Nitrogen 18 mg/dL (9-20); Calcium 8.9 mg/dL (8.4-10.2); Carbon Dioxide 26 mmol/L (22-30); Chloride 105 mmol/L (98-107); Estimated CRCL calculation 127 ml/min; Estimated Glomerular Filt Rate > 60; Glucose 111 mg/dL (65-110); Potassium 3.9 mmol/L (3.4-5.0); Sodium 139 mmol/L (137-145)
--- NOTE | 2021-04-11 06:57 | WPDUROPN2 ---
Progress Note: A&P Assessment and Plan (1) Epididymitis, left: Code(s): N45.1 - Epididymitis Status: Acute Assessment and Plan: Very unusual - sequential, bilat. epididymitis without apparent underlying cause Urine with e. coli - await final sensitivities. Subjective Subjective Date/Time Seen: 04/11/21 06:57 No complaints Review of Systems Cardiovascular: Cardiovascular: Denies chest pain, Denies lightheadedness, Denies palpitations and Denies dyspnea Respiratory: Respiratory: Denies dyspnea Gastrointestinal: Gastrointestinal: Denies diarrhea, Denies nausea and Denies vomiting Genitourinary: Genitourinary: Denies hematuria and Denies dysuria Endocrine: Endocrine: Denies palpitations Exam Const: General: no acute distress Resp: Effort & Inspection: normal respiratory effort GI: Inspection: non-distended GI Palp: No abdominal tenderness and No Guarding due to palpation present (GI) Auscultation: normal bowel sounds : Scrotum: scrotal swelling on the left (swollen and indurated) Objective Data Vital Signs Vital Signs: Vital Signs - 24 hr 04/10/21 14:42 04/10/21 21:19 04/11/21 05:49 Temperature 98.5 F 98.5 F 96.9 F L Pulse Rate 80 77 68 Respiratory Rate 18 16 16 Blood Pressure 118/80 118/78 117/60 Pulse Oximetry 100 95 96 Intake/Output Intake/Output: Intake & Output 04/09/21 04/10/21 04/10/21 04/11/21 00:59 00:59 23:59 23:59 Intake Total 50 Output Total Balance 50 Meds/Results Medications: Active Medications Generic Name Dose Route Start Last Admin Trade Name Freq PRN Reason Stop Dose Admin Acetaminophen 650 mg 04/10/21 22:02 04/10/21 22:04 Acetaminophen 325 Mg Tablet PO 650 mg Q4H PRN Administration Mild Pain (1-3) or Fever Acetaminophen/Aspirin/Caffeine 2 tablet 04/09/21 17:38 04/09/21 21:11 Acetaminophen/Aspirin/Caffeine 250-250-65 Mg Tablet PO 2 tablet Q4-6H PRN Administration Pain Calcium Carbonate 200 mg 04/09/21 17:32 04/09/21 17:48 Calcium Carbonate (Tums) 500 Mg (200 Mg Elemental) PO 200 mg Q6H PRN Administration Indigestion Cyanocobalamin 1,000 mcg 04/10/21 09:00 04/10/21 07:47 Cyanocobalamin 1,000 Mcg Tablet PO 1,000 mcg QAM KRYS Administration Docusate Sodium 100 mg 04/09/21 17:38 Docusate Sodium 100 Mg Capsule PO DAILY PRN Constipation Enoxaparin Sodium 40 mg 04/10/21 09:00 04/10/21 07:47 Enoxaparin 40 Mg/0.4 Ml Syringe SUB-Q 40 mg DAILY KRYS Administration Cefepime HCl 2 gm in 50 mls @ 100 mls/hr 04/09/21 22:00 04/11/21 06:20 Maxipime 2 Gm/D5w 50 Ml IVPB Infused Q8HR KRYS Infusion Pantoprazole Sodium 40 mg 04/10/21 09:00 04/10/21 07:47 Pantoprazole 40 Mg Tablet PO 40 mg QAM KRYS Administration Saccharomyces Boulardii 250 mg 04/10/21 09:00 04/10/21 07:47 Saccharomyces Boulardii 250 Mg Capsule PO 250 mg DAILY KRYS Administration Radiology Results: ITS Impressions Scrotum Ultrasound 04/09/21 12:40 IMPRESSION: 1. Left-sided epididymoorchitis with small complex left hydrocele. ADDENDUM: 04/09/21 1323 CORRECTION: In the findings section the left and right epididymides were reversed in the description of the hyperemia which is seen at the LEFT epididymis. The RIGHT epididymis appears normal aside from the 1.6 cm left epididymal cyst. Abdomen/Pelvis CT 04/09/21 12:45 IMPRESSION: 1. Left-sided epididymoorchitis. 2. From trace stranding and small amount of likely reactive free fluid in the pelvis likely related to combination of left epididymoorchitis and likely associated seminal vesiculitis and potentially residual postoperative changes related to reported recent prostatectomy. Differential would include cystitis and would correlate with urinalysis. 3. Decrease in size of small fluid collections along the bilateral external iliac chains likely resolving hematomas or seromas related to bilateral pelvic lymph
[2021-04-11] MEDS: ENOXAPARIN 40 MG/0.4 ML SYRINGE SUB-Q (09:33)
[2021-04-11] MEDS: PANTOPRAZOLE 40 MG TABLET PO (09:34)
[2021-04-11] MEDS: SACCHAROMYCES BOULARDII 250 MG CAPSULE PO (09:34)
[2021-04-11] MEDS: CYANOCOBALAMIN 1,000 MCG TABLET 1000 MCG PO (09:34)
--- NOTE | 2021-04-11 11:28 | PM.IMPN ---
Progress Note: A&P Assessment and Plan (1) Epididymitis, left: Code(s): N45.1 - Epididymitis Status: Acute Assessment and Plan: Continue cefepime, patient is clinically improving and his white blood cell count has improved as well -Urine culture on admission growing ESBL ecoli - his urine culture from 03/28 ended up growing ESBL and sensitivities were delayed. There is a hard copy of the sensitivities on the chart - blood cultures have no growth to date - urology on board -if pt continues to improve he may be able to go home tomorrow on oral abx (2) Prostate cancer: Code(s): C61 - Malignant neoplasm of prostate Status: Acute Assessment and Plan: The patient had a prostatectomy and stated he is cancer-free (3) Urinary tract infection: Qualifiers: Hematuria presence: without hematuria Urinary tract infection type: acute cystitis Qualified Code(s): N30.00 - Acute cystitis without hematuria Code(s): N39.0 - Urinary tract infection, site not specified Status: Acute Assessment and Plan: as above, continue cefepime (4) Chronic GERD: Code(s): K21.9 - Gastro-esophageal reflux disease without esophagitis Status: Acute Assessment and Plan: chronic, continue protonix Subjective Date/time seen: 04/11/21 11:28 Interval history: Pt is a 61-year-old male here for epididymitis. Patient was seen today and is doing better today. He continues to have swelling but no dysuria. He is eating and drinking better than he has for a couple of days. No cp, sob, fevers, chills, nausea or vomiting. Exam Narrative: General: Well developed well nourished patient in NAD HEENT: normocephalic Neck: supple Neuro: Alert and oriented x4 CV:RRR with systolic murmur heard best at right 2nd intercostal space Resp:CTA Abd: Soft, non distended. No pain to palpation. Positive bowel sounds Extremities: No swelling, erythema, or pain to palpation. Objective Data Vital Signs Vital Signs: Vital Signs - 24 hr 04/10/21 14:42 04/10/21 21:19 04/11/21 05:49 Temperature 98.5 F 98.5 F 96.9 F L Pulse Rate 80 77 68 Respiratory Rate 18 16 16 Blood Pressure 118/80 118/78 117/60 Pulse Oximetry 100 95 96 Intake/Output Intake/Output: Intake & Output 04/09/21 04/10/21 04/10/21 04/11/21 00:59 00:59 23:59 23:59 Intake Total 290 Output Total Balance 290 Meds/Results Medications: Active Medications Generic Name Dose Route Start Last Admin Trade Name Freq PRN Reason Stop Dose Admin Acetaminophen 650 mg 04/10/21 22:02 04/10/21 22:04 Acetaminophen 325 Mg Tablet PO 650 mg Q4H PRN Administration Mild Pain (1-3) or Fever Acetaminophen/Aspirin/Caffeine 2 tablet 04/09/21 17:38 04/09/21 21:11 Acetaminophen/Aspirin/Caffeine 250-250-65 Mg Tablet PO 2 tablet Q4-6H PRN Administration Pain Calcium Carbonate 200 mg 04/09/21 17:32 04/09/21 17:48 Calcium Carbonate (Tums) 500 Mg (200 Mg Elemental) PO 200 mg Q6H PRN Administration Indigestion Cyanocobalamin 1,000 mcg 04/10/21 09:00 04/11/21 09:34 Cyanocobalamin 1,000 Mcg Tablet PO 1,000 mcg QAM KRYS Administration Docusate Sodium 100 mg 04/09/21 17:38 Docusate Sodium 100 Mg Capsule PO DAILY PRN Constipation Enoxaparin Sodium 40 mg 04/10/21 09:00 04/11/21 09:33 Enoxaparin 40 Mg/0.4 Ml Syringe SUB-Q 40 mg DAILY KRYS Administration Cefepime HCl 2 gm in 50 mls @ 100 mls/hr 04/09/21 22:00 04/11/21 06:20 Maxipime 2 Gm/D5w 50 Ml IVPB Infused Q8HR KRYS Infusion Pantoprazole Sodium 40 mg 04/10/21 09:00 04/11/21 09:34 Pantoprazole 40 Mg Tablet PO 40 mg QAM KRYS Administration Saccharomyces Boulardii 250 mg 04/10/21 09:00 04/11/21 09:34 Saccharomyces Boulardii 250 Mg Capsule PO 250 mg DAILY KRYS Administration Radiology Results: ITS Impressions Scrotum Ultrasound 1
[2021-04-11 15:57] VITALS: BP 117/74; PULSE 68; RESP 16; TEMP 36.7; O2SAT 98
[2021-04-11 20:00] VITALS: PULSE 68; RESP 16; O2SAT 98
[2021-04-11 22:00] VITALS: BP 112/63; PULSE 72; RESP 18; TEMP 36.2; O2SAT 97
[2021-04-12 05:44] LABS: Basophils Percent Auto 0.4 % (0.2-1.2); Eosinophils Absolute Auto 0.4 K/mm3 (0-0.3); Eosinophils Percent Auto 4.6 % (0-4.4); Hematocrit 38.7 % (42.0-52.0); Hemoglobin 12.3 g/dL (14.0-18.0); Immature Granulocyte Absolute 0.04 K/mm3 (0.00-0.031); Immature Granulocyte Percent A 0.4 % (0-0.5); Lymphocytes Absolute Auto 1.35 K/mm3 (0.9-3.2); Lymphocytes Percent Auto 14.2 % (18.3-44.2); Mean Corpuscular HGB Conc 31.8 g/dl (32-36); Mean Corpuscular Hemoglobin 27.9 pg (26-34); Mean Corpuscular Volume 87.8 fl (80-100); Mean Platelet Volume 9.1 fl (7.4-10.4); Monocytes Absolute Auto 0.8 K/mm3 (0.1-0.6); Monocytes Percent Auto 8.8 % (2.6-8.5); Neutrophils Absolute Auto 6.8 K/mm3 (1.3-6.7); Neutrophils Percent Auto 71.6 % (45.5-73.1); Platelet Count Result 433 k/mm3 (150-375); Red Blood Count 4.41 M/mm3 (4.6-6.20); Red Cell Distribution Width 14.5 % (11.5-14.5); White Blood Count 9.5 K/mm3 (4.5-10.0)
[2021-04-12 05:57] LABS: Anion Gap 10 mmol/L (8-16); Blood Urea Nitrogen 16 mg/dL (9-20); Calcium 9.5 mg/dL (8.4-10.2); Carbon Dioxide 25 mmol/L (22-30); Chloride 106 mmol/L (98-107); Estimated CRCL calculation 127 ml/min; Estimated Glomerular Filt Rate > 60; Glucose 109 mg/dL (65-110); Potassium 4.3 mmol/L (3.4-5.0); Sodium 141 mmol/L (137-145)
[2021-04-12 06:00] VITALS: BP 128/71; PULSE 74; RESP 18; TEMP 36.3; O2SAT 97
--- NOTE | 2021-04-12 07:02 | WPDUROPN2 ---
Progress Note: A&P Assessment and Plan (1) Epididymitis, left: Code(s): N45.1 - Epididymitis Status: Acute Assessment and Plan: Agree with plans for discharge today - maybe after his 1400 dose of abx. Suggest Bactrim DS bid x3 weeks for e. coli epididymitis. Has f/u appt. with me on 04/27. Subjective Subjective Date/Time Seen: 04/12/21 07:02 Improving, subjectively and objectively Review of Systems Cardiovascular: Cardiovascular: Denies chest pain, Denies lightheadedness, Denies palpitations and Denies dyspnea Respiratory: Respiratory: Denies dyspnea Gastrointestinal: Gastrointestinal: Denies diarrhea, Denies nausea and Denies vomiting Genitourinary: Genitourinary: Denies hematuria and Denies dysuria Endocrine: Endocrine: Denies palpitations Exam Const: General: no acute distress Resp: Effort & Inspection: normal respiratory effort GI: Inspection: non-distended GI Palp: No abdominal tenderness and No Guarding due to palpation present (GI) Auscultation: normal bowel sounds Objective Data Vital Signs Vital Signs: Vital Signs - 24 hr 04/11/21 15:57 04/11/21 20:00 04/11/21 22:00 Temperature 98.1 F 97.1 F L Pulse Rate 68 68 72 Respiratory Rate 16 16 18 Blood Pressure 117/74 112/63 Pulse Oximetry 98 98 97 04/12/21 06:00 Temperature 97.4 F L Pulse Rate 74 Respiratory Rate 18 Blood Pressure 128/71 Pulse Oximetry 97 Intake/Output Intake/Output: Intake & Output 04/10/21 04/10/21 04/11/21 04/12/21 00:59 23:59 23:59 23:59 Intake Total 870 550 Output Total Balance 870 550 Meds/Results Medications: Active Medications Generic Name Dose Route Start Last Admin Trade Name Freq PRN Reason Stop Dose Admin Acetaminophen 650 mg 04/10/21 22:02 04/10/21 22:04 Acetaminophen 325 Mg Tablet PO 650 mg Q4H PRN Administration Mild Pain (1-3) or Fever Acetaminophen/Aspirin/Caffeine 2 tablet 04/09/21 17:38 04/09/21 21:11 Acetaminophen/Aspirin/Caffeine 250-250-65 Mg Tablet PO 2 tablet Q4-6H PRN Administration Pain Calcium Carbonate 200 mg 04/09/21 17:32 04/09/21 17:48 Calcium Carbonate (Tums) 500 Mg (200 Mg Elemental) PO 200 mg Q6H PRN Administration Indigestion Cyanocobalamin 1,000 mcg 04/10/21 09:00 04/11/21 09:34 Cyanocobalamin 1,000 Mcg Tablet PO 1,000 mcg QAM KRYS Administration Docusate Sodium 100 mg 04/09/21 17:38 Docusate Sodium 100 Mg Capsule PO DAILY PRN Constipation Enoxaparin Sodium 40 mg 04/10/21 09:00 04/11/21 09:33 Enoxaparin 40 Mg/0.4 Ml Syringe SUB-Q 40 mg DAILY KRYS Administration Cefepime HCl 2 gm in 50 mls @ 100 mls/hr 04/09/21 22:00 04/12/21 06:15 Maxipime 2 Gm/D5w 50 Ml IVPB Infused Q8HR KRYS Infusion Pantoprazole Sodium 40 mg 04/10/21 09:00 04/11/21 09:34 Pantoprazole 40 Mg Tablet PO 40 mg QAM KRYS Administration Saccharomyces Boulardii 250 mg 04/10/21 09:00 04/11/21 09:34 Saccharomyces Boulardii 250 Mg Capsule PO 250 mg DAILY KRYS Administration Radiology Results: ITS Impressions Scrotum Ultrasound 04/09/21 12:40 IMPRESSION: 1. Left-sided epididymoorchitis with small complex left hydrocele. ADDENDUM: 04/09/21 1323 CORRECTION: In the findings section the left and right epididymides were reversed in the description of the hyperemia which is seen at the LEFT epididymis. The RIGHT epididymis appears normal aside from the 1.6 cm left epididymal cyst. Abdomen/Pelvis CT 04/09/21 12:45 IMPRESSION: 1. Left-sided epididymoorchitis. 2. From trace stranding and small amount of likely reactive free fluid in the pelvis likely related to combination of left epididymoorchitis and likely associated seminal vesiculitis and potentially residual postoperative changes related to reported recent prostatectomy. Differential would include cystitis and would correlate with urinalysis. 3. Decrease in size of small fluid collections along
[2021-04-12] MEDS: PANTOPRAZOLE 40 MG TABLET PO (09:04)
[2021-04-12] MEDS: SACCHAROMYCES BOULARDII 250 MG CAPSULE PO (09:04)
[2021-04-12] MEDS: ENOXAPARIN 40 MG/0.4 ML SYRINGE SUB-Q (09:05)
[2021-04-12] MEDS: CYANOCOBALAMIN 1,000 MCG TABLET 1000 MCG PO (09:05)
--- NOTE | 2021-04-12 13:33 | PM.DS ---
DS: Admitting Diagnosis Discharge Date 04/12/21 Admitting Diagnosis Epididymitis DS: Discharge Diagnosis Discharge Diagnosis (1) Epididymitis, left: Code(s): N45.1 - Epididymitis Status: Acute Assessment and Plan: Improving, patient was on cefepime while hospitalized and transition to Bactrim - spoke with Urology who requested 3 weeks of Bactrim outpatient. they are going to follow his kidney function -Urine culture on admission growing ESBL ecoli - his urine culture from 03/28 ended up growing ESBL and sensitivities were delayed. There is a hard copy of the sensitivities on the chart - blood cultures have no growth to date and will be monitored until finalized (2) Prostate cancer: Code(s): C61 - Malignant neoplasm of prostate Status: Acute Assessment and Plan: The patient had a prostatectomy and stated he is cancer-free (3) Urinary tract infection: Qualifiers: Hematuria presence: without hematuria Urinary tract infection type: acute cystitis Qualified Code(s): N30.00 - Acute cystitis without hematuria Code(s): N39.0 - Urinary tract infection, site not specified Status: Acute Assessment and Plan: as above (4) Chronic GERD: Code(s): K21.9 - Gastro-esophageal reflux disease without esophagitis Status: Acute Assessment and Plan: chronic, continue protonix DS: Summary Hospital Course Hospital Course: Date of service 04/12/2021 Patient is a 61-year-old male who presented emergency room on 04/09/21 at the request of the hospitalist due to resistant UTI with worsening symptoms. patient was originally hospitalized from 03/29-03/31 for epididymitis and improved on ceftriaxone and was sent home on cefdinir. his urine culture at that time was growing E coli but the sensitivities were not back. There was a delay with the sensitivities and once they were received, the patient was called and he stated he was feeling worse and was instructed to come back to emergency room. He came back 04/09/2021 and his urine culture was suspicious for a UTI, he was febrile, he had leukocytosis, and his scrotal ultrasound showed epididymitis but was on the opposite testicle as before ( left-sided). patient was admitted to the hospitalist service and started on cefepime which was sensitive according to the previous urine culture sensitivities. His new urine culture also grew out E coli with the same sensitivities. Blood cultures have no growth to date and will be monitored until finalized. He improved significantly on this therapy. Urology was consulted and they recommended 3 weeks of Bactrim outpatient. the patient was feeling much better the day of discharge and ready to go. He has plans to follow-up with urology. He was educated about the worrisome signs and symptoms come back to emergency room for and was discharged stable condition. Please see above for further details. Status at Discharge Functional status at discharge: independent ambulation Overall status at discharge: patient is back to baseline Time Spent with Patient Time attestation: Total time spent providing and/or coordinating discharge services:38 min Time spent: Greater than 30 minutes Exam Narrative: General: Well developed well nourished patient in NAD HEENT: normocephalic Neck: supple Neuro: Alert and oriented x4 CV:RRR with systolic murmur heard best at right 2nd intercostal space Resp:CTA Abd: Soft, non distended. No pain to palpation. Positive bowel sounds Extremities: No swelling, erythema, or pain to palpation. exam deferred, see urology note DS: Data Data Completed and Pending Labs on day of discharge: Labs from last 24 hours 04/12/21 04/12/21 05:28 05:28 WBC 9.5 RBC 4.41 L Hgb 12.3 L Hct 38.7 L MCV 87.8 MCH 27.9 MCHC 31.8 L RDW 14.5 Plt Count 433 H MPV 9.1 Immature Gran % (Auto) 0.4 Neut % (Auto) 71.6
--- NOTE | 2021-04-15 10:04 | PC.NURSE ---
Blood cx are negative.
== END 2021-04-12 15:00 | disposition home or self-care (01) | DRG 728 ==
LOC: ANHED 13:44 → ANH3MED 14:01
PROVIDERS: Physician Assistant; Admitting Provider Internal Medicine; Emergency Provider Emergency Medicine; Visit Provider Internal Medicine
DX: N45.1 Epididymitis (principal); N39.0 Urinary tract infection, site not specified; K21.9 Gastro-esophageal reflux disease without esophagitis; B96.20 Unspecified Escherichia coli [E. coli] as the cause of diseases classified elsewhere; Z85.038 Personal history of other malignant neoplasm of large intestine; Z85.46 Personal history of malignant neoplasm of prostate
CPT/HCPCS: 36415; 74177; 76870; 80048; 80053; 81001; 83605; 85025; 85610; 85730; 86140; 87040; 87077; 87086; 87088; 87186; 93976; 96361; 96365; 96366; 96372; 99285; A9270; G0378; J0692; J1650; J7030; J7040; Q9967

== ENCOUNTER 2023-10-18 16:09 | Outpatient (CLI) | payer OTHER, SELFPAY ==
--- NOTE | ~2023-10-18 | CT_ITS ---
EXAMINATION: CT abdomen pelvis wo con DATE: 10/18/2023 16:29 INDICATION: Right ureteral stone. TECHNIQUE: Computed tomography (CT) of the abdomen and pelvis was performed without intravenous contr ast. Automated exposure control and iterative reconstruction technique were employed. The dose-length product was 423.56 mGy-cm. COMPARISON: CT abdomen and pelvis 04/09/2021 FINDINGS: The visualized portions of the lung bases demonstrate mild atelectasis. No pleural effusion . The heart size is normal. There are coronary artery calcifications. There are calcifications of the aortic valve. No pericardial effusion. There is a small sliding hiatal hernia. There is diffuse hepa tic steatosis. There are gallstones in the gallbladder, which is normal in size. The spleen, pancreas , adrenal glands, and left kidney are normal. There are three stones in right kidney measuring up to 3 mm. There are no dilated loops of bowel. The appendix is normal. There are no pathologically enlarg ed lymph nodes. There is no free intraperitoneal fluid. There is mild thoracic spondylosis and modera te lumbar spondylosis. IMPRESSION: 1. Nonobstructing right kidney stones. Reviewed, dictated and finalized at location E.
== END 2023-10-18 16:10 | disposition home or self-care (01) ==
LOC: ANHIMG 16:12
PROVIDERS: Visit Provider Urology
DX: N20.1 Calculus of ureter (principal)
CPT/HCPCS: 74176